=== PATIENT | male | born 2000 | race Two or more races ===

== ENCOUNTER 2025-06-16 01:02 | Inpatient (IN) | payer MEDICAID, SELFPAY ==
[2025-06-16] VITALS (7 sets, daily range): BP systolic 137–152; BP diastolic 75–98; PULSE 44–84; RESP 18–19; TEMP 36.2–36.6; O2SAT 95–99; BMI 32.8
--- NOTE | 2025-06-16 01:33 | XR_ITS ---
Examination: CT abdomen and pelvis without contrast. Coronal 3-D reconstructions. Sagittal 2-D reconstructions. Date and time of exam:June 16, 2025, 0308 hours Comparison September 26, 2022 INDICATIONS: Upper abdominal pain beginning 2 days ago, history acute pancreatitis CTDI: vol (mGy): 10.9 DLP: (mGycm): 703 Technique: Axial images of the abdomen have been obtained, 3 mm slice thickness Intravenous contrast material has not been administered. Low dose protocols were performed. One or more of the following dose reduction techniques were used; automated exposure control, adjustment of the mA and/or KV according to patient size, use of iterative reconstruction technique. Findings: No focal liver or splenic lesions Absent gallbladder Significant edema surrounding the pancreas Aorta normal size No hydronephrosis Normal appendix No bowel obstruction Urinary bladder intact IMPRESSION: Acute pancreatitis
[2025-06-16 02:04] LABS: Collection Type, Urine Clean Catch
[2025-06-16 02:05] LABS: Basophils # (Auto) 0.1 Thou/mm3 (0.0-0.2); Basophils % (Auto) 0 % (0-2.5); Eosinophils # (Auto) 0.3 Thou/mm3 (0.0-0.5); Eosinophils % (Auto) 1 % (0-10); Hematocrit 43.0 % (41.0-53.0); Hemoglobin 15.1 g/dL (13.5-16.0); Immature Granulocytes Auto 0.09 Thou/mm3 (0.00-0.00); Lymphocytes # (Auto) 2.4 Thou/mm3 (1.0-4.8); Lymphocytes % (Auto) 11 % (10-50); Mean Corpuscular HGB Conc 35.1 g/dl (31.0-37.0); Mean Corpuscular Hemoglobin 27.0 pg (25.0-35.0); Mean Corpuscular Volume 77 fL (80-100); Monocytes # (Auto) 1.5 Thou/mm3 (0.0-0.8); Monocytes % (Auto) 7 % (0-12); Neutrophils # (Auto) 16.7 Thou/mm3 (1.8-7.7); Neutrophils % (Auto) 80 % (37-80); Nucleated Red Blood Cell # 0.00 Thou/mm3 (0.00-0.00); Nucleated Red Blood Cell % 0 /100 WBC (0); Platelet Count 304 Thou/mm3 (140-440); RDW Standard Deviation 36.6 fL (35.1-43.9); Red Blood Count 5.59 Miln/mm3 (4.50-5.90); White Blood Count 21.0 Thou/mm3 (3.8-10.6)
[2025-06-16 02:09] LABS: Bilirubin,Urine Negative (Negative); Blood,Urine Trace (Negative); Clarity,Urine Clear (Clear/Hazy); Color,Urine Yellow (Lt Yel-Yel); Glucose, Urine Negative (Negative); Ketones,Urine Negative (Negative); Leukocyte Esterase,Urine Negative (Negative); Nitrite,Urine Negative (Negative); PH,Urine 6.0 (5.0-7.0); Protein,Urine Trace (Neg - Trace); RBC,Urine 6 /hpf (0-3); Specific Gravity,Urine 1.029 (1.001-1.035); Squamous Epithelial Cell,Urine < 1 /hpf (0-5); Urobilinogen,Urine Negative mg/dL (0.0-1.0); WBC,Urine 2 /hpf (0-5)
[2025-06-16] MEDS: cefTRIAXone 2 GM in SODIUM CHLORIDE 0.9% (Popper) 100 ML IV (02:31)
[2025-06-16] MEDS: MORPHINE SULF INJ 10 MG/ML VIAL 4 MG IVP (02:32)
[2025-06-16] MEDS: SODIUM CHLORIDE 0.9% 1000 ML 1,000 ML 999 ML IV ×2 (02:32)
[2025-06-16 02:44] LABS: Alanine Aminotransferase 44 U/L (10-49); Albumin, Serum 4.5 gm/dL (3.5-5.0); Albumin/Globulin Ratio 1.7 (1.2-2.2); Alkaline Phosphatase 95 U/L (46-116); Anion Gap 12 (7-16); Aspartate Amino Transferase 36 U/L (0-34); BUN/Creatinine Ratio 9 Ratio (12-20); Bilirubin,Total 0.5 mg/dL (0.3-1.2); Blood Urea Nitrogen 8 mg/dL (9-23); Calcium 9.5 mg/dL (8.3-10.6); Calcium (Corrected) 9.5 mg/dL (8.5-10.1); Carbon Dioxide 24.5 mMol/L (20.0-31.0); Chloride 104 mMol/L (98-107); Creatinine (Component) 0.9 mg/dL (0.6-1.3); Estimated Creatinine Clearance 155.8 mL/min (>60); Globulin 2.7 gm/dL (2.3-3.5); Glucose 121 mg/dL (74-106); Lipase 895 U/L (12-53); Osmolality,Calculated 278 (275-295); Potassium 3.7 mMol/L (3.4-5.1); Sodium 140 mMol/L (136-145); Total Protein 7.2 gm/dL (5.7-8.2); eGFR > 60 See Note
[2025-06-16 02:45] LABS: Lactate (Lactic Acid) 1.3 mMol/L (0.4-2.0)
--- NOTE | 2025-06-16 04:22 | PRELIM_ITS ---
CT scan of the abdomen and pelvis without intravenous contrast (axial sections with sagittal and coronal reformats). June 16, 2025 at 0308 hours Clinical History: Abdominal pain. Comparison: None available at the time of this report. Findings: The lung bases are clear. The liver, spleen, kidneys and adrenals are unremarkable on this noncontrast study. Status postcholecystectomy. No biliary duct dilation. Peripancreatic fat stranding. No evidence of bowel obstruction. The appendix is within normal limits. There is no mesenteric or retroperitoneal adenopathy. The urinary bladder is unremarkable. There is no free fluid or free air. The osseous structures are unremarkable. Impression: Acute pancreatitis. Report Electronically Signed By: Froilan Gross 06/16/2025 4:21:46 AM [EST]
--- NOTE | 2025-06-16 04:41 | EDNOTE_ITS ---
ED Abdominal Pain RME/HPI General Chief Complaint: Abdominal Pain Stated complaint: UPPER ABD PAIN X 2 DAYS Time seen by provider: 06/16/25 01:11 Arrival date/time: 06/16/25 01:02 This is a case of 24-year-old male with history of cholecystectomy and acute pancreatitis came in in the emergency room due to generalized abdominal pain for 2 days associated with nausea vomiting denies any constipation diarrhea denies any blood in stool last alcohol intake is last month April 2025 Limitations: no limitations Related Data Previous Rx's ?Medication ?Instructions ?Recorded aluminum-mag hydroxide-simethicone 10 ml PO Q6H PRN in digestion #355 09/26/22 200 mg-200 mg-20 mg/5 mL oral susp mL (Maalox Advanced) famotidine 20 mg tablet 20 mg PO QDAY #30 tabs 09/26 benzonatate 100 mg capsule 100 mg PO TID #14 caps 08/27 07/19 ibuprofen 800 mg tablet 800 mg PO TID PRN pain #30 t abs 09/13/23 Allergies Allergy/AdvReac Type Severity Reaction Status Date / Time No Known Allergies Allergy Verified 09/26/22 19:17 Review of Systems Review of Systems Systems Reviewed: All systems reviewed, normal except as documented Constitutional Constitutional: Reports system reviewed and no additional complaints, except as documented, Denies chills and Denies fever(s) Cardiovascular Cardiovascular: Reports system reviewed and no additional complaints, except as documented, Reports as per HPI, Denies chest pain and Denies dyspnea Respiratory Respiratory: Reports system reviewed and no additional complaints, except as documented, Reports as per HPI, Denies cough and Denies dyspnea Gastrointestinal Gastrointestinal: Reports system reviewed and no additional complaints, except as documented, Reports as per HPI, Reports abdominal pain, Denies diarrhea, Denies dyspepsia, Reports nausea and Reports vomiting Genitourinary Genitourinary: Reports system reviewed and no additional complaints, except as documented, Reports as per HPI, Denies dysuria and Denies hematuria Neurologic Neurologic: Reports system reviewed and no additional complaints, except as documented and Reports as per HPI Past Medical History Past Medical History NEUROLOGIC: Negative Neurological Disorders CARDIAC: Negative Cardiac Disorders or Congestive Heart Failure RESPIRATORY: Negative Chronic Obstructive Pulmonary Disease (COPD) or Asthma GASTROINTESTINAL: Positive Pancreatitis and Gall Bladder Disease; Negative Gastrointestinal Disorders GENITOURINARY: Negative Genitourinary Disorders or Renal Disease MUSCULOSKELETAL: Negative Musculoskeletal Disorders ENDOCRINE: Negative Endocrine Disorders, Diabetes Mellitus Type 1 or Diabetes Mellitus Type 2 HEMATOLOGIC: Negative Blood Disorders or Sickle Cell Disease OTHER HISTORY: Negative Autoimmune Disease or Anesthesia Reactions Family History FAMILY HISTORY: Negative Family Cardiac Disorders Surgical History SURGICAL: Positive Abdominal Surgery; Negative Cardiac Surgery Social History SMOKING STATUS: Heavy (> 1 pack/day) SECOND HAND EXPOSURE: No SUBSTANCE USE: does not use ED Exam General Limitations: Present no limitations General appearance: Present alert, in no apparent distress and other (Patient is awake alert oriented not in distress nontoxic looking well-hydrated well- nourished) Head Head exam: Present atraumatic Eye Eye exam: Present normal appearance, PERRL and EOMI ENT ENT exam: Present normal exam, normal oropharynx and mucous membranes moist Neck Neck exam: Present normal inspection, full ROM and trachea midline; Absent tenderness, meningismus, lymphadenopathy or thyromegaly Chest Chest inspection: Present normal inspection and symmetric chest wall rise; Absent tenderness Respiratory Respiratory exam: Present normal lung sounds bilaterally; Absent respiratory distress, wheezes, stridor, accessory muscle use or prolonged expiratory phase Cardiovascular Cardiovascular exam: Present regular rate, normal rhythm and normal heart sounds; Absent bradycardia, tachycardia, irregular rhythm, systolic murmur or diastolic murmur Abdominal Exam Abdominal exam: Present soft, tenderness (Mild tenderness on both upper abdomen and epigastric area) and normal bowel sounds; Absent distention, guarding, rebound, rigidity, diminished bowel sounds, hyperactive bowel sounds, hypoactive bowel sounds, organomegaly, trauma, psoas sign, obturator sign, Barton's sign, Rovsing's sign, tenderness at McBurney's Point or hernia Abdominal tenderness: Present RUQ, LUQ, epigastrium and mild Extremities Exam Extremities exam: Present normal inspection and full ROM Back Exam Back exam: Present normal inspection and full ROM Neurological Exam Neurological exam: Present alert, oriented X3, CN II-XII intact, normal gait and reflexes normal; Absent motor sensory deficit Psychiatric Psychiatric exam: Present normal affect and normal mood Skin Skin exam: Present warm, dry, intact and normal color Course Quality Measures none Orders Category Date Time Status COVID-19 Screening Questionnaire NOW Care 06/16/25 02:51 Active Decision to Admit X1 Care 06/16/25 02:51 Completed Insert IV NOW Care 06/16/25 02:[address] abdomen pelvis wo con Stat Exams 06/16/25 01:33 Taken Amylase Stat Lab 06/16/25 02:32 Received Blood Culture (Lab) Stat Lab 06/16/25 02:39 Received CBC Stat Lab 06/16/25 01:51 Completed Comprehensive Metabolic Panel Stat Lab 06/16/25 01:51 Completed Lactic Acid [Lactate (Lactic Acid)] Stat Lab 06/16/25 02:32 Completed Lipase Stat Lab 06/16/25 01:51 Completed Urinalysis Stat Lab 06/16/25 01:56 Completed Famotidine Inj [Pepcid Inj] Med 06/16/25 02:16 Discontinued 20 mg IVP X1 ONE Morphine Inj Med 06/16/25 02:16 Active 4 mg IVP Q30M PRN Sodium Chloride 0.9% 1000 ml [Ns] 1,000 ml Med 06/16/25 02:16 Discontinued IV 999 mls/hr Sodium Chloride 0.9% 1000 ml [Ns] 1,000 ml Med 06/16/25 02:18 Discontinued IV 999 mls/hr cefTRIAXone [Rocephin] 2 gm Med 06/16/25 02:19 Discontinued SODIUM CHLORIDE 0.9% (Popper) [Ns 0.9% (P)] 100 ml IV X1 Vital Signs Vital signs: Vital Signs Temperature 97.8 F 06/16/25 01:30 Pulse Rate 61 06/16/25 01:30 Respiratory Rate 18 06/16/25 01:30 Blood Pressure 152/98 H 06/16/25 01:30 Pulse Oximetry (%) 97 06/16/25 01:30 Oxygen Delivery Method Room Air 06/16/25 01:30 Patient is afebrile not tachycardic not tachypneic BP stable not hypoxic oxygen saturation is 97% in room air Abdominal Pain MDM MDM Narrative MDM Narrative:: This is a case of 24-year-old male with history of cholecystectomy and acute pancreatitis came in in the emergency room due to generalized abdominal pain for 2 days associated with nausea vomiting denies any constipation diarrhea denies any blood in stool last alcohol intake is last month April 2025 physical examination patient is awake alert oriented not in distress nontoxic looking well-hydrated well-nourished abdominal exam noted mild to moderate tenderness on both upper abdominal and epigastric area no guarding no rebound no rigidity negative psoas negative straight or negative Rovsing's negative Rush's negative Barton sign negative CVA tenderness the rest of the physical examination is normal vital signs stable BP stable nontachycardic nontachypneic afebrile and nonhypoxic patient blood test showed leukocytosis at 21,000 thus lactic acid and blood culture was ordered patient was also given a 2000 mL bolus of normal saline and 2 g of ceftriaxone no anemia platelet is normal kidney and liver function is normal bilirubin is normal no electrolyte imbalance urinalysis is normal patient pending amylase lipase is 845 CT scan showed acute pancreatitis lactic acid is normal decision to admit the patient for further evaluation and treatment was made I spoke to Dr. Lenz hospitalist on-call discussed patient condition history and physical examination and agreed that the patient need to be admitted and accept patient care for admission discussed with the patient the treatment plan admission and agreed Patient data External records reviewed:: [facility] previous records Clinical information provided by:: patient Social determinants that could affect healthcare access:: none Patient has the following chronic illnesses:: None How is presenting disease/condition affected by chronic disease/condition?: no chronic disease Evaluation data The following diagnostics were reviewed and interpreted by me:: lab results and radiology exam(s) Lab and/or radiology exams considered but not ordered:: Reviewed Interpretation Summary: Reviewed Medications / Prescriptions Medications or Prescriptions considered but not ordered:: Given Medication administrations:: Medication Administration History Morphine Sulfate (Morphine Sulf Inj 10 Mg/Ml Vial) 4 mg IVP Q30M PRN PRN Reason: PAIN Last Admin: 06/16/25 02:32 Dose: 4 mg Documented By: BD Discontinued Medications Famotidine (Famotidine Inj 10 Mg/Ml Vial 2 Ml) 20 mg IVP X1 ONE Stop: 06/16/25 02:17 Last Admin: 06/16/25 02:22 Dose: Not Given Documented By: BD Non-Admin Reason: Cancelled by Provider Sodium Chloride (Ns) 1,000 mls @ 999 mls/hr IV .Q1H1M ONE Stop: 06/16/25 03:16 Last Infusion: 06/16/25 03:26 Dose: Infused Documented By: Admin: 06/16/25 02:32 Dose: 999 mls/hr Documented By: BD Sodium Chloride (Ns) 1,000 mls @ 999 mls/hr IV .Q1H1M ONE Stop: 06/16/25 03:18 Last Infusion: 06/16/25 03:26 Dose: Infused Documented By: Admin: 06/16/25 02:32 Dose: 999 mls/hr Documented By: BD Ceftriaxone Sodium 2 gm/ (Sodium Chloride) 100 mls @ 200 mls/hr IV X1 ONE Stop: 06/16/25 02:48 Last Infusion: 06/16/25 03:06 Dose: Infused Documented By: Admin: 06/16/25 02:31 Dose: 200 mls/hr Documented By: BD Given Consultations Consultation(s) initiated? (list below): Yes Consultation #1 (Physician, Specialty, Details): Dr Lenz discussed patient condition history and physical examination accept patient care and admission Diagnosis Differential diagnosis abdominal pain: abdominal pain, acute appendicitis, calculus of kidney, constipation, diverticulitis, gastroenteritis, pancreatitis and small bowel obstruction Most likely diagnosis given after review of the tests above:: Acute pancreatitis Admission Indicated Admission indicated?: indicated Explain why admission is indicated or not indicated:: Acute pancreatitis Admission Request Was there a request for admission?: Yes Admission Attestation Admission request attestation: Discussed case with [] from Hospitalist service regarding admission. Discussed patients ED course, exam findings, labs, and radiology results. The Hospitalist [agrees,declines] to accept the patient for admission. Disposition Plan Disposition Plan: Admit Discharge Plan Plan Patient Disposition: Admit Acute Care w/in Hospital Patient condition on transfer: Stable Prescriptions/Referrals Prescriptions/Med Rec: No Action famotidine 20 mg tablet 20 mg PO QDAY Qty: 30 0RF alum-mag hydroxide-simeth [Maalox Advanced] 200-200-20 mg/5 mL suspension 10 ml PO Q6H PRN (Reason: indigestion) Qty: 355 0RF ibuprofen 800 mg tablet 800 mg PO TID PRN (Reason: pain) Qty: 30 0RF benzonatate 100 mg capsule 100 mg PO TID Qty: 14 0RF Referrals: No Primary/Family,Physician [Primary Care Provider] - In 1 week Problem List Clinical Impression: Acute pancreatitis Patient/Caregiver Discharge Instructions Education Materials: ED Pancreatitis Print Language: Fijian Stand Alone Forms: Belen Award Info., Patient Portal Info Letter PA/ENVIRONMENTAL TECH Supervising Physician PA/ENVIRONMENTAL TECH Supervising Physician: dr rojas
[2025-06-16] MEDS: RINGERS LACTATED 1000 ML 1,000 ML 200 ML IV ×4 (05:13→21:53)
[2025-06-16] MEDS: KETOROLAC INJ 30 MG/ML VIAL IVP (05:16)
[2025-06-16] MEDS: ONDANSETRON INJ 2 MG/ML INJ 2 ML 4 MG IVP (05:33)
[2025-06-16 05:39] LABS: Basophils # (Auto) 0.1 Thou/mm3 (0.0-0.2); Basophils % (Auto) 0 % (0-2.5); Eosinophils # (Auto) 0.5 Thou/mm3 (0.0-0.5); Eosinophils % (Auto) 3 % (0-10); Hematocrit 39.0 % (41.0-53.0); Hemoglobin 13.9 g/dL (13.5-16.0); Immature Granulocytes Auto 0.10 Thou/mm3 (0.00-0.00); Lymphocytes # (Auto) 2.6 Thou/mm3 (1.0-4.8); Lymphocytes % (Auto) 14 % (10-50); Mean Corpuscular HGB Conc 35.6 g/dl (31.0-37.0); Mean Corpuscular Hemoglobin 27.6 pg (25.0-35.0); Mean Corpuscular Volume 77 fL (80-100); Monocytes # (Auto) 1.2 Thou/mm3 (0.0-0.8); Monocytes % (Auto) 7 % (0-12); Neutrophils # (Auto) 14.0 Thou/mm3 (1.8-7.7); Neutrophils % (Auto) 76 % (37-80); Nucleated Red Blood Cell # 0.00 Thou/mm3 (0.00-0.00); Nucleated Red Blood Cell % 0 /100 WBC (0); Platelet Count 239 Thou/mm3 (140-440); RDW Standard Deviation 37.3 fL (35.1-43.9); Red Blood Count 5.04 Miln/mm3 (4.50-5.90); White Blood Count 18.4 Thou/mm3 (3.8-10.6)
[2025-06-16 05:59] LABS: Alanine Aminotransferase 42 U/L (10-49); Albumin, Serum 4.0 gm/dL (3.5-5.0); Albumin/Globulin Ratio 1.7 (1.2-2.2); Alkaline Phosphatase 86 U/L (46-116); Anion Gap 9 (7-16); Aspartate Amino Transferase 39 U/L (0-34); BUN/Creatinine Ratio 9 Ratio (12-20); Bilirubin,Total 0.4 mg/dL (0.3-1.2); Blood Urea Nitrogen 7 mg/dL (9-23); Calcium 8.5 mg/dL (8.3-10.6); Calcium (Corrected) 8.5 mg/dL (8.5-10.1); Carbon Dioxide 23.6 mMol/L (20.0-31.0); Chloride 107 mMol/L (98-107); Creatinine (Component) 0.8 mg/dL (0.6-1.3); Estimated Creatinine Clearance 175.3 mL/min (>60); Globulin 2.3 gm/dL (2.3-3.5); Glucose 109 mg/dL (74-106); Osmolality,Calculated 278 (275-295); Potassium 3.4 mMol/L (3.4-5.1); Sodium 140 mMol/L (136-145); Total Protein 6.3 gm/dL (5.7-8.2); eGFR > 60 See Note
--- NOTE | 2025-06-16 06:15 | ESHP_ITS ---
Documentation for date of: 06/16/25 [facility] History of Present Illness History of present illness: Nahid Garcia is a 24-year-old male with a PMH of alcohol use disorder who presents today with abdominal pain with associated nausea. Patient states that the pain started yesterday morning and that the pain was localized across his upper abdominal area. The pain is described as constant and worsening after he eats or drinks, with its current severity being a 9/10. Patient reports that his last drink was a year ago and that his last bowel movement was yesterday and productive of normal, brown stool. He also endorses urinary frequency but no dysuria or hematuria. In the ED, vitals showed: BP 152/98 HR 61 RR 18 Temp 97.8 SpO2 97% on room air ED Course: CBC showed high WBC 18.4 with neutrophilic predominance but was otherwise unremarkable. CMP showed slightly elevated AST 39, normal ALT 42, and a significantly elevated lipase 895. UA showed some RBC present in urine (6 per high-powered field). Imaging: CTAP showed findings suggestive of acute pancreatitis. In the ED, patient was started on IV ceftriaxone 2 g x 1, and given 1 L normal saline bolus x2. Patient was admitted for the work-up and management of acute pancreatitis. Review of Systems Review of Systems Narrative Review of Systems: General: Denies fevers or chills HEENT: Denies congestion or sore throat Heart: Denies chest pain or palpitations Lungs: Denies shortness of breath or cough Abdomen: Endorses abdominal pain in RUQ and LUQ. Endorses nausea. Denies vomiting, constipation, diarrhea, or blood in stool Genitourinary: Endorses urinary frequency. Denies urgency, dysuria, or hematuria Neurology: Denies any changes in vision, weakness or difficulty speaking Review of systems otherwise negative except what is mentioned above. Past Medical History Past Medical History Comments PMH COMMENT: PMH: none PSH: cholecystectomy (2019) Medications: none Allergies: none FH: T2DM in mom SH: lives in a house in [place] with uncle, drank an average of 12 packs per day from age [age] (quit 1 year ago), smoked an average of 1 pack per day from age [age] (still smokes), denies any recreational drug use Exam Vital Signs Temp Pulse Resp BP Pulse Ox O2 Del Method 97.7 F 51 L 18 148/92 H 99 Room Air 06/16/25 04:31 06/16/25 04:06/16/25 04:31 06/16/25 04:31 06/16/25 04:06/16/25 04:31 Narrative Exam Physical Exam: General: Seems to be pained and in distress. Alert. Skin: Warm, dry, intact, no obvious rash. Head: Normocephalic, atraumatic. Eye: Normal conjunctiva, PERRL. Throat: Oral mucosa moist. No obvious lesions in oropharynx. Cardiovascular: Regular rate and rhythm, no murmur, +S1/S2. Respiratory: Shallow breaths. Lungs are clear to auscultation, no crackles, no wheezing. Gastrointestinal: Tenderness to palpation of RUQ and LUQ abdomen. Guarding. S oft, non-distended. No rebound tenderness. Extremities: No edema, no cyanosis, no clubbing. 2+ radial pulse bilaterally, 2+ posterior tibial pulse bilaterally. Neuro: No focal deficits observed. Conversant, moving all extremities. No overt cerebellar signs/incoordination. Psychiatric: Cooperative, appropriate affect. Results: Labs 06/16/25 05:18 06/16/25 05:18 Labs: Short CBC 06/16/25 06/16/25 Range/Units 01:51 05:18 WBC 21.0 H 18.4 H (3.8-10.6) Thou/mm3 Hgb 15.1 13.9 (13.5-16.0) g/dL Hct 43.0 39.0 L (41.0-53.0) % Plt Count 304 239 D (140-440) Thou/mm3 [facility] 06/16/25 06/16/25 01:51 05:18 Sodium 140 140 Potassium 3.7 3.4 Chloride 104 107 Carbon Dioxide 24.5 23.6 BUN 8 L 7 L Creatinine 0.9 0.8 Glucose 121 H 109 H Calcium 9.5 8.5 Liver Function 06/16/25 06/16/25 Range/Units 01:51 05:18 Total Bilirubin 0.5 0.4 (0.3-1.2) mg/dL AST 36 H 39 H (0-34) U/L ALT 44 42 (10-49) U/L Alkaline Phosphatase 95 86 (46-116) U/L Albumin 4.5 4.0 D (3.5-5.0) gm/dL Urine 06/16/25 Range/Units 01:56 Urine Color Yellow (Lt Yel-Yel) Urine Clarity Clear (Clear/Hazy) Urine pH 6.0 (5.0-7.0) Ur Specific [place] 1.029 (1.001-1.035) Urine Protein Trace (Neg - Trace) Urine Glucose (UA) Negative (Negative) Quality Measures Quality Measures none Medications Home Medications and Allergies Home Medications ?Medication ?Instructions ?Recorded ?Confirmed ?Type No Known Home Medications 06/16/2505/28 History Allergies Allergy/AdvReac Type Severity Reaction Status Date / Time No Known Allergies Allergy Verified 09/26/22 19:17 Visit Medications Acetaminophen (Acetaminophen 325 Mg Tablet) 650 mg PO Q6H PRN PRN Reason: PAIN SCALE 1-3 (mild Stop: 07/16/25 04:58 Lactated Ringer's (Lactated Ringers) 1,000 mls @ 200 mls/hr IV .Q5H ANNETTE Stop: 07/16/25 04:59 Last Admin: 06/16/25 05:13 Dose: 200 mls/hr Ketorolac Tromethamine (Ketorolac Inj 30 Mg/Ml Vial) 30 mg IVP Q6HR PRN PRN Reason: Pain 4-6 Stop: 06/21/25 04:58 Last Admin: 06/16/25 05:16 Dose: 30 mg Morphine Sulfate (Morphine Sulf Inj 10 Mg/Ml Vial) 1 mg IVP Q6H PRN PRN Reason: PAIN SCALE 7-10 (Severe Stop: 06/21/25 04:58 Ondansetron HCl (Ondansetron Inj 2 Mg/Ml Inj 2 Ml) 4 mg IVP Q6H PRN; Protocol PRN Reason: NAUSEA OR VOMITING Stop: 07/16/25 04:58 Last Admin: 06/16/25 05:33 Dose: 4 mg Discontinued Medications Famotidine (Famotidine Inj 10 Mg/Ml Vial 2 Ml) 20 mg IVP X1 ONE Stop: 06/16/25 02:17 Last Admin: 06/16/25 02:22 Dose: Not Given Sodium Chloride (Ns) 1,000 mls @ 999 mls/hr IV .Q1H1M ONE Stop: 06/16/25 03:16 Last Infusion: 06/16/25 03:26 Dose: Infused Sodium Chloride (Ns) 1,000 mls @ 999 mls/hr IV .Q1H1M ONE Stop: 06/16/25 03:18 Last Infusion: 06/16/25 03:26 Dose: Infused Ceftriaxone Sodium 2 gm/ (Sodium Chloride) 100 mls @ 200 mls/hr IV X1 ONE Stop: 06/16/25 02:48 Last Infusion: 06/16/25 03:06 Dose: Infused Morphine Sulfate (Morphine Sulf Inj 10 Mg/Ml Vial) 4 mg IVP Q30M PRN PRN Reason: PAIN Last Admin: 06/16/25 02:32 Dose: 4 mg Assessment & Plan Assessment #Acute pancreatitis #likely 2/2 gallstones (40-70% of cases)/alcohol use (25-35% of cases) #s/p cholecystectomy and Noncontrast CTAP showed significant edema surrounding the pancreas suggesting acute pancreatitis as well as the absence of a gallbladder. Cause of current presentation is currently unknown as most cases of acute pancreatitis are 2/2 gallstones (patient is s/p 2019 cholecystectomy) or alcohol use (patient has not drank since last year) which do not seem to be the case for this patient. Plan: -Moderate fluid infusion with 1 L LR maintenance fluid at 200 mL/hr -Pain regimen: 1. IV Ketorolac 30 mg q6HR prn (Pain 4-6) 2. IV morphine 1 mg q 6HR prn (Pain 7-10) -Placed on NPO (advance diet as tolerated) -IV Zofran 40 mg q4HR prn for nausea -Consider ordering a lipid panel to determine if the acute pancreatitis is 2/2 hypertriglyceridemia Hospital Management: Disposition: being symptomatically managed for acute pancreatitis Diet: NPO (advance diet as tolerated) GI Prophylaxis: none Bowel Prophylaxis: Senna DVT Prophylaxis: SCDs CODE STATUS: Full Code I have examined the patient and conferred with my attending, Dr. Moreland, and my senior resident, Dr. Henry, regarding them. Santosh Lenz DO PGY-1 Internal Medicine Attending Provider Attestation/Addendum 24-year-old male patient with alcohol use was admitted for abdominal pain secondary to pancreatitis. Patient will receive IV fluids pain control. He will be kept n.p.o. I discussed with and supervised the resident physician who took care of this patient. I agree with the assessment and plan as above.
--- NOTE | 2025-06-16 06:22 | PC.NURSE ---
REPORT GIVEN TO RITA TSE AT [facility].
[2025-06-16 08:25] LABS: Cardiac Risk Estimate 3.1 RATIO (4.0-6.7); Cholesterol 106 mg/dL (132-200); HDL Cholesterol 34 mg/dL (40-60); LDL Cholesterol,Calculated 40 mg/dL (0-130); Triglycerides 159 mg/dL (30-150)
--- NOTE | 2025-06-16 09:51 | PC.SS ---
Patient is a 24 year old male that was brought in in for pancreatitis. YOUTH SUPPORT WORKER made face to face contact with patient. YOUTH SUPPORT WORKER introduced self, role, and reason for visit. Pt. was alert and oriented to self, location, and situation. Pt. confirmed demographic information and reports that his emergency contact is his uncle, Nahid Garcia, ph:[phone]. Pt. does not require DME and is able to ambulate independently. His pharmacy of choice is [facility] on [address]. Pt. reported that he does not have a PCP. YOUTH SUPPORT WORKER provided pt. with community resource list for local clinics. Once medically cleared pt. plans to return home and his uncle Nahid will provide transportation. PCP: none Emergency contact: [phone] D/c: home
[2025-06-16] MEDS: MORPHINE SULF INJ 10 MG/ML VIAL IVP ×2 (10:37→18:02)
[2025-06-16 10:39] LABS: Glucose Estimated Average 103 mg/dL (80-131); Hemoglobin A1C 5.2 % Hgb (4.8-6.0)
[2025-06-16 12:30] LABS: Alcohol, Urine Negative (Negative)
[2025-06-16 12:37] LABS: Amphetamine/Methamp Scrn,U Positive (Negative); Barbiturate Screen,Urine Negative (Negative); Benzodiazepines Screen,Urine Negative (Negative); Benzoylecgonine Screen, Ur Positive (Negative); Fentanyl Screen,Urine Negative (Negative); Opiate Screen,Urine Positive (Negative); THC Screen,Urine Negative (Negative)
--- NOTE | 2025-06-16 13:28 | ESPR_ITS ---
<Statement entered by Julia Gant MD - 06/24/25 08:01> I reviewed above note and agree with findings and plans. I have also personally examined the patient with medicine team and went over assessment and plan with medical team including manager of internal audit and resident physician. Documentation for date of: 06/16/25 Overnight admission for acute pancreatitis, continue IV fluids, advance diet as tolerated currently clear liquids advance to full liquids for breakfast on 06/17/2025. Patient has a past medical history of alcohol use disorder, denies alcohol use since previous admission with a negative urine alcohol level versus cocaine and meth induced which can be rare but can cause vasoconstriction versus viral such as HIV but less likely. Continue to monitor WBC count/for pyrexia likely reactive but given edematous pancreas infectious cause cannot be ruled out. Tobacco use disorder with a 8-pack-year history, nicotine patch on board. May given Ativan push of 1 mg if agitation present. NO agiation or withdrawl symptoms noted. Plan to discharge within the next 24 hours. Subjective Subjective Interval history: Patient seen and examined at bedside this AM. Of note, patient's last two admissions in January and August 2022 were also for pancreatitis, likely alcohol related. Patient reports he has not been drinking for the past year. He has been smoking 1 PPD since he was 17 years old. Denied recreational or illegal drug use. Labs and vitals were reviewed. S/p IVP CFX in ED, WBC elevated but downtrending, likely reactive. Utox 06/16 was positive for meth and cocaine, also positive for opiates but was given PRN ketorolac and morphine on admission. Negative for alcohol. Currently rates his pain as 4/10, will advance diet as tolerated. Anticipate discharge tomorrow. Review of systems otherwise negative except what is mentioned above. Exam Vital Signs Temp Pulse Resp BP Pulse Ox O2 Del Method 97.2 F 52 L 18 141/85 H 97 Room Air 06/16/25 11:57 06/16/25 11:57 06/16/25 11:57 06/16/25 11:57 06/16/25 11:57 06/16/25 11:57 Objective Objective Narrative Objective Narrative: Physical Exam General: Awake and in no acute distress. Conversational and non-toxic appearing. HEENT: Normocephalic, atraumatic, mucous membranes moist. Heart: Regular rate and rhythm, normal S1 and S2, no murmurs. Lungs: Clear to auscultation with no wheezing or crackles. Abdomen: Soft, nondistended, positive bowel sounds. Tenderness in epigastric region and LUQ. No guarding or rebound tenderness. Neurologic: Alert and oriented x3, no gross neurological deficit, and patient able to move all 4 extremities. Extremities: No edema. Skin: No rash or ecchymoses. Labs 06/16/25 05:18 06/16/25 05:18 Labs: Laboratory Results - last 24 hr 06/16/25 06/16/25 06/16/25 01:51 01:56 02:32 WBC 21.0 H RBC 5.59 Hgb 15.1 Hct 43.0 MCV 77 L MCH 27.0 MCHC 35.1 RDW Std Deviation 36.6 Plt Count 304 Neut % (Auto) 80 Lymph % (Auto) 11 [place] % (Auto) 7 Eos % (Auto) 1 Baso % (Auto) 0 Neut # (Auto) 16.7 H Lymph # (Auto) 2.4 [place] # (Auto) 1.5 H Eos # (Auto) 0.3 Baso # (Auto) 0.1 Immature Gran # (Auto) 0.09 H Absolute Nucleated RBC 0.00 Immature Gran % 0 Nucleated RBC % 0 Sodium 140 Potassium 3.7 Chloride 104 Carbon Dioxide 24.5 Anion Gap 12 BUN 8 L Creatinine 0.9 Estim Creat Clear Calc 155.8 eGFR > 60 BUN/Creatinine Ratio 9 L Glucose [address] Glu mg/dL Hemoglobin A1c Calculated Osmolality 278 Lactic Acid 1.3 Calcium 9.5 Corrected Calcium 9.5 Total Bilirubin 0.5 AST 36 H ALT 44 Alkaline Phosphatase 95 Total Protein 7.2 Albumin 4.5 Globulin 2.7 Albumin/Globulin Ratio 1.7 Triglycerides Cholesterol LDL Cholesterol, Calc HDL Cholesterol Cholesterol/HDL Ratio Lipase 895 H Ur Collection Type Clean Catch Urine Color Yellow Urine Clarity Clear Urine pH 6.0 Ur Specific [place] 1.029 Urine Protein Trace Urine Glucose (UA) Negative Urine Ketones Negative Urine Blood Trace Urine Nitrite Negative Urine Bilirubin Negative Urine Urobilinogen (Auto) Negative Ur Leukocyte Esterase Negative Urine RBC 6 H Urine WBC 2 Ur Squamous Epith Cells < 1 Urine Bacteria None Urine Opiates Screen Urine Fentanyl Screen Ur Barbiturates Screen U Amphetamin/Meth Scrn U Benzodiazepines Scrn U Cocaine Metab Screen U Marijuana (THC) Screen Urine Alcohol 06/16/25 06/16/25 06/16/25 05:18 08:40 11:34 WBC 18.4 H RBC 5.04 Hgb 13.9 Hct 39.0 L MCV 77 L MCH 27.6 MCHC 35.6 RDW Std Deviation 37.3 Plt Count 239 D Neut % (Auto) 76 Lymph % (Auto) 14 [place] % (Auto) 7 Eos % (Auto) 3 Baso % (Auto) 0 Neut # (Auto) 14.0 H Lymph # (Auto) 2.6 [place] # (Auto) 1.2 H Eos # (Auto) 0.5 Baso # (Auto) 0.1 Immature Gran # (Auto) 0.10 H Absolute Nucleated RBC 0.00 Immature Gran % 1 H Nucleated RBC % 0 Sodium 140 Potassium 3.4 Chloride 107 Carbon Dioxide 23.6 Anion Gap 9 BUN 7 L Creatinine 0.8 Estim Creat Clear Calc 175.3 eGFR > 60 BUN/Creatinine Ratio 9 L Glucose [address] Glu mg/dL 103 Hemoglobin A1c 5.2 Calculated Osmolality 278 Lactic Acid Calcium 8.5 Corrected Calcium 8.5 Total Bilirubin 0.4 AST 39 H ALT 42 Alkaline Phosphatase 86 Total Protein 6.3 Albumin 4.0 D Globulin 2.3 Albumin/Globulin Ratio 1.7 Triglycerides 159 H Cholesterol 106 L LDL Cholesterol, Calc 40 HDL Cholesterol 34 L Cholesterol/HDL Ratio 3.1 L Lipase Ur Collection Type Urine Color Urine Clarity Urine pH Ur Specific [place] Urine Protein Urine Glucose (UA) Urine Ketones Urine Blood Urine Nitrite Urine Bilirubin Urine Urobilinogen (Auto) Ur Leukocyte Esterase Urine RBC Urine WBC Ur Squamous Epith Cells Urine Bacteria Urine Opiates Screen Positive A Urine Fentanyl Screen Negative Ur Barbiturates Screen Negative U Amphetamin/Meth Scrn Positive A U Benzodiazepines Scrn Negative U Cocaine Metab Screen Positive A U Marijuana (THC) Screen Negative Urine Alcohol Negative Quality Measures Quality Measures none Assessment & Plan Assessment Current Active Medications: Generic Name Dose Route Start Last Admin Trade Name Freq PRN Reason Stop Dose Admin Acetaminophen 650 mg 06/16/25 04:59 Acetaminophen 325 Mg Tablet PO 07/16/25 04:58 Q6H PRN PAIN SCALE 1-3 (mild Lactated Ringer's 1,000 mls @ 200 mls/hr 06/16/25 05:00 06/16/25 10:33 Lactated Ringers IV 07/16/25 04:59 200 mls/hr .Q5H ANNETTE Administration Ketorolac Tromethamine 30 mg 06/16/25 04:59 06/16/25 05:16 Ketorolac Inj 30 Mg/Ml Vial IVP 06/21/25 04:58 30 mg Q6HR PRN Administration Pain 4-6 Morphine Sulfate 1 mg 06/16/25 04:59 06/16/25 10:37 Morphine Sulf Inj 10 Mg/Ml Vial IVP 06/21/25 04:58 1 mg Q6H PRN Administration PAIN SCALE 7-10 (Severe Nicotine 7 mg 06/16/25 12:00 Nicotine Patch 7 Mg/24 Hr Patch.Td24 TOP 07/16/25 11:59 QDAY ANNETTE Ondansetron HCl 4 mg 06/16/25 04:59 06/16/25 05:33 Ondansetron Inj 2 Mg/Ml Inj 2 Ml IVP 07/16/25 04:58 4 mg Q6H PRN Administration NAUSEA OR VOMITING Protocol Plan Patient is a 24 year old male with past medical history of alcohol abuse, tobacco use, and s/p cholecystectomy in 2019 who presented on 06/16 for abdominal pain with associated nausea, found to have acute pancreatitis on CT. #Acute pancreatitis, likely 2/2 to drug use #Hx of pancreatitis Patient has had at least 2 admission in 2021 also for pancreatitis, at that time alcohol related, less likely secondary to alcohol use as patient denies recent alcohol consumption and negative urine study vs cocaine & meth induced pancreatitis leading to acute vasoconstriction vs viral, can not rule out HIV vs idiopathy Noncontrast CTAP 06/16 showed significant edema surrounding the pancreas suggesting acute pancreatitis as well as the absence of a gallbladder which was removed in 2019. Utox was negative for alcohol but positive for meth and cocaine. Lipid panel 06/16/25 shows triglycerides 159, cholesterol 106, LDL 40, HDL 34 Plan: -Normal Saline IV fluids -advance diet as tolerated -pain control with Tylenol, [place], and Morphine -Zofran for nausea #Leukocytosis, likely reactive Elevated at 21 on admission, downtrending. S/p ceftriaxone IVP in ED. Arrived afebrile, low suspicion of infection but bacterial infection of pancreas can not be rule out given significant edema surroudning the pancreas. Plan -Blood culture penidng -will hold antibiotics -continue to monitor WBC and pyrexia #Substance abuse Utox positive for meth and cocaine. Patient denied illicit drug use. Previously negative on past admissions. Plan -Continue to monitor for agitation, consider Ativan if need be. - Manager Administrative patient on cessation #Tobacco Use Disorder 8-pack year history of smoking (since 16 years of age, 1 pack per day) Plan - Nicotine patch placed - Recommended cessation #Hx of alcohol abuse Patient denied alcohol use since previous admission, about 1 year ago. Negative alcohol urine screen. - Encouraged to continue sobriety Health Maintenance Disposition: home, likely tomorrow DVT prophylaxis: none needed GI prophylaxis: Zofran for nausea Diet: clear liquid, advance as tolerated CODE STATUS: FULL Patient plan of care was discussed with the resident, Dr. Mae, and attending physician, Dr. Gant. Mi Wagner, PGY-1 - The patient's plan was discussed with attending Dr. Alfreda Mae MD PGY2 Internal Medicine
--- NOTE | 2025-06-16 15:04 | PC.SS ---
Rounding note: Advancing diet, likely to discharge in 1 day. Discharge plan: Home.
[2025-06-16] MEDS: HYDROcodone/APAP 5/325 TABLET 1 TAB PO ×2 (15:50→23:55)
[2025-06-17] VITALS: BP 124/72; PULSE 45; PULSE 63; RESP 18; TEMP 36.3; O2SAT 96
[2025-06-17] MEDS: MORPHINE SULF INJ 10 MG/ML VIAL IVP (02:51)
[2025-06-17] MEDS: RINGERS LACTATED 1000 ML 1,000 ML 200 ML IV ×2 (02:53→07:13)
[2025-06-17 04:00] VITALS: BP 144/75; PULSE 49; PULSE 61; RESP 18; TEMP 36.1; O2SAT 97
[2025-06-17 06:12] LABS: Basophils # (Auto) 0.1 Thou/mm3 (0.0-0.2); Basophils % (Auto) 1 % (0-2.5); Eosinophils # (Auto) 1.0 Thou/mm3 (0.0-0.5); Eosinophils % (Auto) 9 % (0-10); Hematocrit 40.1 % (41.0-53.0); Hemoglobin 14.1 g/dL (13.5-16.0); Immature Granulocytes Auto 0.07 Thou/mm3 (0.00-0.00); Lymphocytes # (Auto) 3.2 Thou/mm3 (1.0-4.8); Lymphocytes % (Auto) 29 % (10-50); Mean Corpuscular HGB Conc 35.2 g/dl (31.0-37.0); Mean Corpuscular Hemoglobin 27.4 pg (25.0-35.0); Mean Corpuscular Volume 78 fL (80-100); Monocytes # (Auto) 0.8 Thou/mm3 (0.0-0.8); Monocytes % (Auto) 7 % (0-12); Neutrophils # (Auto) 6.0 Thou/mm3 (1.8-7.7); Neutrophils % (Auto) 54 % (37-80); Nucleated Red Blood Cell # 0.00 Thou/mm3 (0.00-0.00); Nucleated Red Blood Cell % 0 /100 WBC (0); Platelet Count 229 Thou/mm3 (140-440); RDW Standard Deviation 37.7 fL (35.1-43.9); Red Blood Count 5.15 Miln/mm3 (4.50-5.90); White Blood Count 11.1 Thou/mm3 (3.8-10.6)
[2025-06-17 06:42] LABS: Alanine Aminotransferase 52 U/L (10-49); Albumin, Serum 3.6 gm/dL (3.5-5.0); Albumin/Globulin Ratio 1.5 (1.2-2.2); Alkaline Phosphatase 91 U/L (46-116); Anion Gap 8 (7-16); Aspartate Amino Transferase 33 U/L (0-34); BUN/Creatinine Ratio 6 Ratio (12-20); Bilirubin,Total 0.6 mg/dL (0.3-1.2); Blood Urea Nitrogen < 5 mg/dL (9-23); Calcium 8.5 mg/dL (8.3-10.6); Calcium (Corrected) 8.8 mg/dL (8.5-10.1); Carbon Dioxide 25.4 mMol/L (20.0-31.0); Chloride 107 mMol/L (98-107); Creatinine (Component) 0.9 mg/dL (0.6-1.3); Estimated Creatinine Clearance 155.8 mL/min (>60); Globulin 2.4 gm/dL (2.3-3.5); Glucose 91 mg/dL (74-106); Magnesium 1.5 mg/dL (1.6-2.6); Osmolality,Calculated 276 (275-295); Phosphorous 3.0 mg/dL (2.4-5.1); Potassium 3.8 mMol/L (3.4-5.1); Sodium 140 mMol/L (136-145); Total Protein 6.0 gm/dL (5.7-8.2); eGFR > 60 See Note
[2025-06-17 07:34] VITALS: BP 141/81; PULSE 60; RESP 17; TEMP 36.2; O2SAT 99
[2025-06-17] MEDS: NICOTINE PATCH 7 MG/24 HR PATCH.TD24 TOP (10:05)
[2025-06-17] MEDS: HYDROcodone/APAP 5/325 TABLET 1 TAB PO (10:08)
[2025-06-17 11:16] VITALS: BP 127/70; PULSE 50; RESP 18; TEMP 36.2; O2SAT 93
[2025-06-17 12:14] VITALS: PULSE 63
--- NOTE | 2025-06-17 13:17 | PC.SS ---
Rounding: if pt tolerates advanced diet, poss late DC home
[2025-06-17 15:39] VITALS: BP 122/66; PULSE 58; RESP 18; TEMP 36.2; O2SAT 97
--- NOTE | 2025-06-17 18:37 | ESDS_ITS ---
Planned Discharge Date 06/17/25 DS: Providers Provider Date of admission: 06/16/25 10:45 Primary care physician: Physician No Primary/Family Admitting Provider: Boris Moreland MD Attending Provider on Admission: Julia Gant MD Attending Provider on DC: Josefina Mae MD Discharging Provider: Josefina Mae MD DS: Diagnosis Problem List Completed Was Problem List Reviewed/Reconciled?: Yes Hospital Course Hospital Course Hospital course: Summary: Patient is a 24-year-old male with a past medical history of alcohol use disorder (urine alcohol negative), substance use disorder, and repeated admissions for acute pancreatitis concern for chronic pancreatitis. Patient was admitted overnight on 06/16/2025 secondary to acute pancreatitis complaining of 9 out of 10 pain. Patient advised to stop any illicit substance use including cocaine and methamphetamines. Please follow-up with primary doctor for further recommendations ER Course: Vitals: Blood pressure 152/98, HR 61, RR 18, T97.8, SpO2 97% RA WBC: 21 (H)--> repeat 18.4 Sodium 140, potassium 3.7 BUN 12, creatinine 0.9, GFR greater than 60, glucose 121 Total bili 0.5, AST 36, ALT 44, lipase 895 CT abdomen 06/16/2025: Significant edema surrounding the pancreas--> acute pancreatitis, Lipase 895 Medication: Famotidine, Morphine, NS bolus X 2, Ceftriaxone 2 gm X 1 Hospital Course: On admission patient was started on with aggressive fluid resuscitation at a rate of 1.5 mL/kg/h. Patient made n.p.o. given diffuse abdominal tenderness with 9 out of 10 pain. Pain management on board. Patient started on IV antibiotics given concern for leukocytosis. Leukocytosis is likely secondary reactive. No pyrexia reported, WBC count now downtrending, and no chills reported. Blood culture negative at 24 hours, please follow-up as outpatient with further results. Lipid panel: Triglycerides 159, cholesterol, 106, LDL 40, HDL 34 ASVD, no statins recommended. Acute pancreatitis less likely secondary to triglyceridemia. Patient's diet advanced to full liquids on day 1 for dinner. Patient tolerated diet well. Patient was transition to regular diet the evening of 06/17/2025, patient tolerated diet well. Reviewed wound discontinue smoking and substance use disorder including meth and cocaine as both of these may be leading to worsening pancreatitis. #Acute pancreatitis, likely 2/2 to drug use #Hx of pancreatitis #Leukocytosis, likely reactive #Substance abuse #Tobacco Use Disorder #Hx of alcohol abuse Safe to Discharge home Instructions: -Recommend Alcohol abstinence completely to prevent further episodes of pancreatitis, also recommend abstinence from drugs and alcohol -Please follow up with your primary care provider within one week of discharge -If your symptoms worsen,please seek immediate medical attention and return to your nearest emergency room -If you do not have a primary care provider, you may follow up at the [facility] at [address] [place] [address] [address], [place] [address], - The patient's plan was discussed with attending Dr. Alfreda Mae MD PGY2 Internal Medicine Time Spent with Patient Time attestation: Total time spent providing and/or coordinating discharge services: at least thirty minutes of care and coordination Time spent: Greater than 30 minutes Exam Vital Signs Temp Pulse Resp BP Pulse Ox O2 Del Method 97.2 F 58 L 18 122/66 97 Room Air 06/17/25 15:39 06/17/25 15:39 06/17/25 15:39 06/17/25 15:39 06/17/25 15:39 06/17/25 15:39 Narrative Exam General Appearance: Alert & Oriented X3, well-nourished female who is lying in bed in no acute distress HEENT: Skull symmetrical and atraumatic. Conjunctivae pink and moist. Pupils equal, round, reactive to light and accommodation (PERRL). External ear without lesion or discharge. Straight, nares patient, mucosa pink, no discharge. No thyroid nodule appreciated. No cervical lymphadenopathy. Cardio: Normal Rate and Rhythm with S1 and S2 heart sounds. No murmurs or extra heart sounds auscultated. No bruits on carotid auscultation. No peripheral edema or cyanosis. Lungs: Symmetric with good expansion. Chest and back non-tender. Breath sounds vesicular without crackles, wheezing or rhonchi Abdomen: Non-tender, Non-distended, Normal Reactive Bowel Sounds Neuro: Alert, cooperative, oriented to person, place, and time. Speech clear. CN grossly intact. Upper motor strength 5/5 and Lower motor strength 5/5. Sensation intact. Discharge Plan Plan Patient Disposition: HOME (Self Care) Patient condition on transfer: Stable Care Plan Goals: -Recommend Alcohol abstinence completely to prevent further episodes of pancreatitis, also recommend abstinence from drugs and alcohol -Please follow up with your primary care provider within one week of discharge -If your symptoms worsen,please seek immediate medical attention and return to your nearest emergency room -If you do not have a primary care provider, you may follow up at the [facility] at [facility] [address], [place] [address], Prescriptions/Referrals Prescriptions/Med Rec: New hydrocodone-acetaminophen 5-325 mg Tablet 1 tab PO Q8HR MDD one pill 3 times daily PRN (Reason: Pain) 3 Days Qty: 9 0RF Referrals: No Primary/Family,Physician [Primary Care Provider] - Patient/Caregiver Discharge Instructions Meds to Beds: No Discharge Activity: activity as tolerated Education Materials: Pancreatitis Acute Dc, ED Drug Abuse Print Language: Welsh Stand Alone Forms: [facility] Award Info., Patient Portal Info Letter Discharge Order Discharge Orders: Discharge (Routine); Ordered 06/17/25 Ordered By: Josefina Mae Quality Discharge Quality Measures VTE prophylaxis Attestestation MD Attestation I have examined the patient, reviewed labs and imaging findings, discussed the case with the resident(s), and reviewed entered orders. I agree with the plan of care as outlined in this note. Time Spent: [address] Oskar MD
[2025-06-18 07:36] LABS: Amylase 743 U/L (30-118)
== END 2025-06-17 17:00 | disposition home or self-care (01) | DRG 282 ==
LOC: SERX 04:39 → S3NX 07:54 → SERHOLD 09:19 → S3NX 09:20 → SERHOLD 09:20
PROVIDERS: Nurse Practitioner Family; Admitting Provider Internal Medicine; Emergency Provider Emergency Medicine; Visit Provider Internal Medicine
DX: K85.90 Acute pancreatitis without necrosis or infection, unspecified (principal); E78.1 Pure hyperglyceridemia; F17.210 Nicotine dependence, cigarettes, uncomplicated; F14.10 Cocaine abuse, uncomplicated; Z90.49 Acquired absence of other specified parts of digestive tract
CPT/HCPCS: 36415; 74176; 80053; 80061; 80307; 80320; 81001; 82150; 83036; 83605; 83690; 83735; 84100; 85025; 87040; 96361; 96365; 96375; 96376; 99284; J0696; J1885; J2270; J2405; J7030; J7050; J7120; A9270; G0480

== ENCOUNTER 2025-07-21 17:46 | Inpatient (IN) | payer MEDICAID, SELFPAY ==
--- NOTE | 2025-07-21 19:01 | XR_ITS ---
Examination: CT abdomen and pelvis without contrast. Coronal 3-D reconstructions. Sagittal 2-D reconstructions. Date and time of exam:July 21, 2025, 1924 hours, comparison June 16, 2025. INDICATIONS: Onset abdominal pain today, history acute pancreatitis CTDI: vol (mGy): 9.18 DLP: (mGycm): 593. Technique: Axial images of the abdomen have been obtained, 3 mm slice thickness Intravenous contrast material has not been administered. Low dose protocols were performed. One or more of the following dose reduction techniques were used; automated exposure control, adjustment of the mA and/or KV according to patient size, use of iterative reconstruction technique. Findings: No focal liver lesions. Absent gallbladder. Acute pancreatitis, edema surrounding the pancreas No renal or ureteral calculi. No bowel obstruction Normal appendix Urinary bladder is intact The osseous structures are intact. IMPRESSION: Acute pancreatitis, no pseudocyst
[2025-07-21 19:10] VITALS: BP 132/88; PULSE 78; RESP 18; TEMP 36.9; O2SAT 99
[2025-07-21 19:46] LABS: Basophils # (Auto) 0.1 Thou/mm3 (0.0-0.2); Basophils % (Auto) 1 % (0-2.5); Eosinophils # (Auto) 0.3 Thou/mm3 (0.0-0.5); Eosinophils % (Auto) 2 % (0-10); Hematocrit 47.3 % (41.0-53.0); Hemoglobin 16.3 g/dL (13.5-16.0); Immature Granulocytes Auto 0.10 Thou/mm3 (0.00-0.00); Lymphocytes # (Auto) 2.4 Thou/mm3 (1.0-4.8); Lymphocytes % (Auto) 13 % (10-50); Mean Corpuscular HGB Conc 34.5 g/dl (31.0-37.0); Mean Corpuscular Hemoglobin 26.9 pg (25.0-35.0); Mean Corpuscular Volume 78 fL (80-100); Monocytes # (Auto) 1.0 Thou/mm3 (0.0-0.8); Monocytes % (Auto) 6 % (0-12); Neutrophils # (Auto) 13.9 Thou/mm3 (1.8-7.7); Neutrophils % (Auto) 78 % (37-80); Nucleated Red Blood Cell # 0.00 Thou/mm3 (0.00-0.00); Nucleated Red Blood Cell % 0 /100 WBC (0); Platelet Count 295 Thou/mm3 (140-440); RDW Standard Deviation 37.5 fL (35.1-43.9); Red Blood Count 6.06 Miln/mm3 (4.50-5.90); White Blood Count 17.7 Thou/mm3 (3.8-10.6)
[2025-07-21 20:11] LABS: Alanine Aminotransferase 34 U/L (10-49); Albumin, Serum 4.7 gm/dL (3.5-5.0); Albumin/Globulin Ratio 1.5 (1.2-2.2); Alkaline Phosphatase 106 U/L (46-116); Anion Gap 9 (7-16); Aspartate Amino Transferase 20 U/L (0-34); BUN/Creatinine Ratio 8 Ratio (12-20); Bilirubin,Total 0.6 mg/dL (0.3-1.2); Blood Urea Nitrogen 7 mg/dL (9-23); Calcium 9.9 mg/dL (8.3-10.6); Calcium (Corrected) 9.9 mg/dL (8.5-10.1); Carbon Dioxide 24.9 mMol/L (20.0-31.0); Chloride 106 mMol/L (98-107); Creatinine (Component) 0.9 mg/dL (0.6-1.3); Globulin 3.1 gm/dL (2.3-3.5); Glucose 101 mg/dL (74-106); Osmolality,Calculated 277 (275-295); Potassium 3.7 mMol/L (3.4-5.1); Sodium 140 mMol/L (136-145); Total Protein 7.8 gm/dL (5.7-8.2); eGFR > 60 See Note
[2025-07-21 20:23] LABS: Lipase 2175 U/L (12-53)
--- NOTE | 2025-07-21 21:58 | PD.EDRME ---
Rapid Medical Screening Exam RME Arrival date/time: 07/21/25 17:46 This is a case of 54-year-old male with no medical history came into the emergency room due to abdominal pain nausea vomiting for 3 days worsening of the symptoms this patient decided to start consult here in the emergency room Chief Complaint: Abdominal Pain Time Seen by Provider: 07/21/25 18:26 Vital signs: Vital Signs Temperature 98.5 F 07/21/25 19:10 Pulse Rate 78 07/21/25 19:10 Respiratory Rate 18 07/21/25 19:10 Blood Pressure 132/88 H 07/21/25 19:10 Pulse Oximetry (%) 99 07/21/25 19:10 Oxygen Delivery Method Room Air 07/21/25 19:10
--- NOTE | 2025-07-21 22:15 | PC.NURSE ---
CALLED PT IN ER LOBBY AND OUTSIDE OF ER AND NO ANSWER
--- NOTE | 2025-07-21 22:30 | PC.NURSE ---
CALLED PT OUTSIDE OF ER AND IN ER LOBBY AND NO ANSWER
--- NOTE | 2025-07-21 22:40 | PC.NURSE ---
CALLED PT IN ER LOBBY AND OUTSIDE OF ER AND NO ANSWER
[2025-07-21 23:56] VITALS: BP 149/83; PULSE 53; RESP 18; TEMP 36.6; O2SAT 98
[2025-07-22] VITALS (9 sets, daily range): BP systolic 110–134; BP diastolic 64–83; PULSE 37–70; RESP 13–18; TEMP 36.1–36.9; O2SAT 96–99; BMI 32.7
--- NOTE | 2025-07-22 01:38 | EDNOTE_ITS ---
ED Abdominal Pain RME/HPI General Chief Complaint: Abdominal Pain Stated complaint: ABD PAIN X 1 DAY Time seen by provider: 07/21/25 18:26 Arrival date/time: 07/21/25 17:46 This is a case of 24-year-old male with history of heavy alcohol drinker and acute pancreatitis came in in the emergency room due to generalized abdominal pain nausea and vomiting for 2 days worsening of the symptoms this patient decided to sought consult here in the emergency room Source: patient Limitations: no limitations RME / HPI RME / HPI narrative: 07/21/25 17:46 This is a case of 54-year-old male with no medical history came into the emergency room due to abdominal pain nausea vomiting for 3 days worsening of the symptoms this patient decided to start consult here in the emergency room Related Data Allergies Allergy/AdvReac Type Severity Reaction Status Date / Time No Known Allergies Allergy Verified 07/21/25 17:49 Review of Systems Review of Systems Systems Reviewed: All systems reviewed, normal except as documented Constitutional Constitutional: Reports system reviewed and no additional complaints, except as documented and Reports as per HPI Cardiovascular Cardiovascular: Reports system reviewed and no additional complaints, except as documented and Reports as per HPI Respiratory Respiratory: Reports system reviewed and no additional complaints, except as documented and Reports as per HPI Gastrointestinal Gastrointestinal: Reports system reviewed and no additional complaints, except as documented, Reports as per HPI, Reports abdominal pain, Reports nausea and Reports vomiting Genitourinary Genitourinary: Reports system reviewed and no additional complaints, except as documented and Reports as per HPI Musculoskeletal Musculoskeletal: Reports system reviewed and no additional complaints, except as documented and Reports as per HPI Neurologic Neurologic: Reports system reviewed and no additional complaints, except as documented and Reports as per HPI Past Medical History Past Medical History NEUROLOGIC: Negative Neurological Disorders CARDIAC: Negative Cardiac Disorders or Congestive Heart Failure RESPIRATORY: Negative Chronic Obstructive Pulmonary Disease (COPD) or Asthma GASTROINTESTINAL: Positive Pancreatitis and Gall Bladder Disease; Negative Gastrointestinal Disorders or Hepatitis GENITOURINARY: Negative Genitourinary Disorders or Renal Disease MUSCULOSKELETAL: Negative Musculoskeletal Disorders ENDOCRINE: Negative Endocrine Disorders, Diabetes Mellitus Type 1 or Diabetes Mellitus Type 2 HEMATOLOGIC: Negative Blood Disorders or Sickle Cell Disease OTHER HISTORY: Negative Autoimmune Disease, Anesthesia Reactions, MRSA, VRSA, Vancomycin-Resistant Enterococci, Human Immunodeficiency Virus (HIV), Chicken Pox, Measles, Mumps, Rubella (Divehi Measles), Pertussis, Clostridium Difficile or Cancer Family History FAMILY HISTORY: Negative Family Cardiac Disorders, Family Cancer, Family Surgery or Family Anesthesia Reaction Surgical History SURGICAL: Positive Abdominal Surgery; Negative Cardiac Surgery Social History SMOKING STATUS: Current every day smoker SECOND HAND EXPOSURE: No SUBSTANCE USE: does not use ED Exam General Limitations: Present no limitations General appearance: Present alert, in no apparent distress and other (Patient is awake alert oriented not in distress nontoxic looking well-hydrated well- nourished) Head Head exam: Present atraumatic, normocephalic and normal inspection Eye Eye exam: Present normal appearance, PERRL and EOMI ENT ENT exam: Present normal exam, normal oropharynx and mucous membranes moist Neck Neck exam: Present normal inspection, full ROM and trachea midline; Absent tenderness, meningismus, lymphadenopathy or thyromegaly Chest Chest inspection: Present normal inspection and symmetric chest wall rise; Absent tenderness, rash or abscess Respiratory Respiratory exam: Present normal lung sounds bilaterally; Absent respiratory distress, wheezes, stridor, accessory muscle use or prolonged expiratory phase Cardiovascular Cardiovascular exam: Present regular rate, normal rhythm and normal heart sounds; Absent bradycardia, tachycardia, irregular rhythm, systolic murmur or diastolic murmur Abdominal Exam Abdominal exam: Present soft, tenderness (Mild to moderate tenderness on both upper abdomen) and normal bowel sounds; Absent distention, guarding, rebound, rigidity, diminished bowel sounds, hyperactive bowel sounds, hypoactive bowel sounds, organomegaly, trauma, incision, psoas sign, obturator sign, Barton's sign, Rovsing's sign or tenderness at McBurney's Point Extremities Exam Extremities exam: Present normal inspection and full ROM Back Exam Back exam: Present normal inspection and full ROM Neurological Exam Neurological exam: Present alert, oriented X3, CN II-XII intact, normal gait and reflexes normal; Absent motor sensory deficit Psychiatric Psychiatric exam: Present normal affect and normal mood Skin Skin exam: Present warm, dry, intact and normal color Course Quality Measures none Orders Category Date Time Status COVID-19 Screening Questionnaire NOW Care 07/22/25 01:36 Active COVID-19 Screening Questionnaire NOW Care 07/22/25 01:36 Completed Decision to Admit X1 Care 07/22/25 01:[address] abdomen pelvis wo con Stat Exams 07/21/25 19:01 Completed Blood Culture (Lab) Stat Lab 07/22/25 01:37 Ordered CBC Stat Lab 07/21/25 19:36 Completed Comprehensive Metabolic Panel Stat Lab 07/21/25 19:36 Completed Lactic Acid [Lactate (Lactic Acid)] Stat Lab 07/22/25 01:37 Ordered Lipase Stat Lab 07/21/25 19:36 Completed Morphine Inj Med 07/22/25 01:35 Discontinued 4 mg IVP X1 ONE Ondansetron Inj [Zofran Inj] Med 07/22/25 01:35 Discontinued 4 mg IVP X1 ONE Pantoprazole Inj [Protonix Inj] Med 07/22/25 01:35 Discontinued 40 mg IVP X1 ONE Sodium Chloride 0.9% 1000 ml [Ns] 1,000 ml Med 07/22/25 01:35 Active IV 999 mls/hr Vital Signs Vital signs: Vital Signs Temperature 98.5 F 07/21/25 19:10 Pulse Rate 78 07/21/25 19:10 Respiratory Rate 18 07/21/25 19:10 Blood Pressure 132/88 H 07/21/25 19:10 Pulse Oximetry (%) 99 07/21/25 19:10 Oxygen Delivery Method Room Air 07/21/25 19:10 Patient oxygen saturation is 99% in room air Abdominal Pain MDM MDM Narrative MDM Narrative:: This is a case of 24-year-old male with history of heavy alcohol drinker and acute pancreatitis came in in the emergency room due to generalized abdominal pain nausea and vomiting for 2 days worsening of the symptoms this patient decided to sought consult here in the emergency room physical examination patient is awake alert oriented not in distress nontoxic looking well-hydrated well-nourished patient lungs sound is clear no crackles no rales no retraction no stridor abdominal exam is benign nonsurgical with mild to moderate tenderness in the both upper abdomen no guarding no rebound no rigidity negative psoas negative straight or negative Rovsing's negative McBurney's no Barton sign negative CVA tenderness excellent skin turgor the rest of the physical examination and neurological exam is normal and unremarkable blood test showed l eukocytosis of 17.7 still pending lactic acid and blood culture patient has no anemia platelet is normal no electrolyte imbalance kidney and liver function is normal patient lipase [id number] urinalysis is normal CT scan showed an absent of gallbladder but with acute pancreatitis based on my physical examination and history decision to admit the patient here in the emergency room for further evaluation and treatment was made I spoke to Dr. Jade discussed patient condition history and physical examination and agreed that the patient need to be admitted and accept patient admission patient was given a bolus of normal saline Zofran for vomiting morphine for pain and Protonix discussed patient his admission and agreed Patient data External records reviewed:: [facility] previous records Clinical information provided by:: patient Social determinants that could affect healthcare access:: none Patient has the following chronic illnesses:: None How is presenting disease/condition affected by chronic disease/condition?: no chronic disease Evaluation data The following diagnostics were reviewed and interpreted by me:: lab results and radiology exam(s) Lab and/or radiology exams considered but not ordered:: Reviewed Interpretation Summary: Reviewed Medications / Prescriptions Medications or Prescriptions considered but not ordered:: Given Medication administrations:: Medication Administration History Sodium Chloride (Ns) 1,000 mls @ 999 mls/hr IV .Q1H1M ONE Stop: 07/22/25 02:35 Discontinued Medications Morphine Sulfate (Morphine Sulf Inj 10 Mg/Ml Vial) 4 mg IVP X1 ONE Stop: 07/22/25 01:36 Ondansetron HCl (Ondansetron Inj 2 Mg/Ml Inj 2 Ml) 4 mg IVP X1 ONE; Protocol Stop: 07/22/25 01:36 Pantoprazole Sodium (Pantoprazole Inj 40 Mg Vial) 40 mg IVP X1 ONE Stop: 07/22/25 01:36 Given Consultations Consultation(s) initiated? (list below): Yes Consultation #1 (Physician, Specialty, Details): Dr. Jade discussed patient condition history and examination relayed result of the blood test and CT scan agreed that the patient need to be admitted and accept patient admission Diagnosis Differential diagnosis abdominal pain: abdominal pain, acute appendicitis, calculus of kidney, constipation, diverticulitis, endometriosis, gastroenteritis and pancreatitis Most likely diagnosis given after review of the tests above:: Acute pancreatitis Admission Indicated Admission indicated?: indicated Explain why admission is indicated or not indicated:: Acute pancreatitis Admission Request Was there a request for admission?: Yes Admission Attestation Admission request attestation: Discussed case with [] from Hospitalist service regarding admission. Discussed patients ED course, exam findings, labs, and radiology results. The Hospitalist [agrees,declines] to accept the patient for admission. Disposition Plan Disposition Plan: Admit Discharge Plan Plan Patient Disposition: Admit Acute Care w/in Hospital Patient condition on transfer: Stable Prescriptions/Referrals Referrals: No Primary/Family,Physician [Primary Care Provider] - In 1 week Problem List Clinical Impression: Acute pancreatitis, Abdominal pain Patient/Caregiver Discharge Instructions Education Materials: Abdominal Pain, ED Pancreatitis Print Language: Indonesian Stand Alone Forms: [employer]en Award Info., Patient Portal Info Letter PA/GREENHOUSE TECHNICIAN Supervising Physician PA/GREENHOUSE TECHNICIAN Supervising Physician: Dr. Khanh URBINA
[2025-07-22] MEDS: ONDANSETRON INJ 2 MG/ML INJ 2 ML 4 MG IVP (01:45)
[2025-07-22] MEDS: MORPHINE SULF INJ 10 MG/ML VIAL 4 MG IVP (01:45)
[2025-07-22] MEDS: SODIUM CHLORIDE 0.9% 1000 ML 1,000 ML 999 ML IV (01:46)
[2025-07-22 02:10] LABS: Lactate (Lactic Acid) 0.6 mMol/L (0.4-2.0)
--- NOTE | 2025-07-22 03:15 | ESHP_ITS ---
<Statement entered by Mainor Back MD - 07/22/25 08:44> I have discussed and was present for the essential components of the history, physical examination, diagnosis, and treatment plan with the resident. I agree with the patient's care as documented by the resident and amended herein by me. Mainor Back MD FACP. Documentation for date of: 07/22/25 HPI History of Present Illness Chief complaint: Abdominal pain History of present illness: 24 y/o M with PMHx significant for polysubstance abuse, alcohol abuse, recurrent acute pancreatitis presents chief complaint of 1 day of significant abdominal pain, with associated nausea and 1 episode of nonbloody emesis. Patient reports his symptoms began suddenly, with progressive worsening. Nausea is mild, maintains appetite but eating is painful. Denies fevers, chills, chest pain, shortness of breath. ED COURSE: Labs significant for: WBC 17.7, hemoglobin 16.3, bicarb 24.9. Lipase 2175. Imaging significant for: CT A/P showing acute pancreatitis with edema, no pseudocyst. Received 1 L bolus normal saline, morphine in the ED. PMH: Polysubstance abuse, alcohol abuse, acute pancreatitis PSH: Cholecystectomy SH: 8-pack-year smoking history, active smoker. Reports he quit drinking 2 years ago. Denies any drug use, however previous U tox positive for methamphetamines, cocaine. Allergies:?NKDA Medications: None Review of Systems Review of Systems Systems Reviewed: All systems reviewed, normal except as documented Past Medical History Past Medical History Comments PMH COMMENT: PMH: Polysubstance abuse, alcohol abuse, acute pancreatitis PSH: Cholecystectomy SH: 8-pack-year smoking history, active smoker. Reports he quit drinking 2 years ago. Denies any drug use, however previous U tox positive for methamphetamines, cocaine. Allergies:?NKDA Medications: None Exam Vital Signs Temp Pulse Resp BP Pulse Ox O2 Del Method 98.4 F 60 18 134/81 H 99 Room Air 07/22/25 01:33 07/22/25 01:33 07/22/25 01:33 07/22/25 01:33 07/22/25 01:33 07/22/25 01:33 Narrative Exam PE: Gen: Well-developed and well-nourished. HEENT: NCAT, PERRLA, EOMI, MMM, anicteric conjunctivae. CVS: normal S1 and S2. RRR. No M/R/G. Resp: CTA B/L. No rhonchi, rales, crackles or wheezing. Abd: soft, non-distended. BS+ in all 4 quadrants. Mild epigastric pain. MSK: Good ROM in BUE & BLE. No edema or rash. Neuro: CN II-XII grossly intact. Strength 5/5 in BUE & BLE. Alert and oriented x3. Psych: appropriate mood and affect. Results: Labs 07/21/25 19:36 07/21/25 19:36 Labs: Short CBC 07/21/25 Range/Units 19:36 WBC 17.7 H (3.8-10.6) Thou/mm3 Hgb 16.3 H (13.5-16.0) g/dL Hct 47.3 (41.0-53.0) % Plt Count 295 D (140-440) Thou/mm3 BMP 07/21/25 19:36 Sodium 140 Potassium 3.7 Chloride 106 Carbon Dioxide 24.9 BUN 7 L Creatinine 0.9 Glucose 101 Calcium 9.9 Liver Function 07/21/25 Range/Units 19:36 Total Bilirubin 0.6 (0.3-1.2) mg/dL AST 20 (0-34) U/L ALT 34 (10-49) U/L Alkaline Phosphatase 106 (46-116) U/L Albumin 4.7 (3.5-5.0) gm/dL Quality Measures Quality Measures VTE prophylaxis Medications Home Medications and Allergies Allergies Allergy/AdvReac Type Severity Reaction Status Date / Time No Known Allergies Allergy Verified 07/21/25 17:49 Visit Medications Acetaminophen (Acetaminophen 325 Mg Tablet) 650 mg PO Q6HR PRN PRN Reason: Fever >100.4 or pain Stop: 08/21/25 03:12 Hydrocodone Bitart/Acetaminophen (Hydrocodone/Apap 5/325 Tablet) 1 tab PO Q6HR PRN PRN Reason: PAIN SCALE 4-6 (Moderate Stop: 07/27/25 03:12 Enoxaparin Sodium (Enoxaparin Sod Inj 40 Mg/0.4 Ml Syringe) 40 mg SC QDAY ANNETTE Stop: 08/05/25 08:59 Sodium Chloride (Ns) 1,000 mls @ 100 mls/hr IV .Q10H ANNETTE Stop: 07/23/25 09:14 Morphine Sulfate (Morphine Sulf Inj 10 Mg/Ml Vial) 2 mg IVP Q2H PRN PRN Reason: PAIN SCALE 7-10 (Severe Stop: 07/27/25 03:06 Ondansetron HCl (Ondansetron Inj 2 Mg/Ml Inj 2 Ml) 4 mg IVP Q6H PRN; Protocol PRN Reason: NAUSEA OR VOMITING Stop: 08/21/25 03:06 Pantoprazole Sodium (Pantoprazole Inj 40 Mg Vial) 40 mg IVP QDAY [facility] Stop: 08/21/25 08:59 Discontinued Medications Sodium Chloride (Ns) 1,000 mls @ 999 mls/hr IV .Q1H1M ONE Stop: 07/22/25 02:35 Last Infusion: 07/22/25 03:14 Dose: Infused Morphine Sulfate (Morphine Sulf Inj 10 Mg/Ml Vial) 4 mg IVP X1 ONE Stop: 07/22/25 01:36 Last Admin: 07/22/25 01:45 Dose: 4 mg Ondansetron HCl (Ondansetron Inj 2 Mg/Ml Inj 2 Ml) 4 mg IVP X1 ONE; Protocol Stop: 07/22/25 01:36 Last Admin: 07/22/25 01:45 Dose: 4 mg Pantoprazole Sodium (Pantoprazole Inj 40 Mg Vial) 40 mg IVP X1 ONE Stop: 07/22/25 01:36 Last Admin: 07/22/25 01:45 Dose: 40 mg Assessment & Plan Plan 24 y/o M with PMHx significant for polysubstance abuse, alcohol abuse, recurrent acute pancreatitis presents chief complaint of 1 day of significant abdominal pain, with associated nausea and 1 episode of nonbloody emesis, admitted for acute pancreatitis. #Acute pancreatitis Patient presented chief complaint abdominal pain with associated nonbloody emesis x 1 day. Pain worse when eating. Patient's history of recurrent pancreatitis, likely secondary to alcohol abuse or substance abuse. Patient denies alcohol or illicit drug use, however previous U-Tox positive for cocaine and methamphetamine. CT A/P showed acute pancreatitis with edema surrounding pancreas. Lipase 2175. Mild epigastric tenderness on exam. Received 1 L bolus normal saline in the ED. - N.p.o. except meds - IVF: Normal saline at 100 mL/h x 3 L - Triglycerides ordered, follow-up - Morphine 2 mg IV every 2 hours as needed for severe pain - [place] 5 every 6 hours as needed for moderate pain - Advance diet as tolerated #Leukocytosis WBC 17.7 on admission. Patient afebrile, vitals WNL, no history of recent fevers, chills. Most likely reactive to acute pancreatitis. - Monitor #Polysubstance abuse, patient history Patient denies any illicit drug use, but previous history of positive for cocaine methamphetamines. May be contributing to recurrent pancreatitis. - [employer] patient regarding polysubstance abuse DVT prophylaxis: Lovenox GI prophylaxis: Protonix Diet: N.p.o., hold aspirin Lines: Peripheral IV Code status: Full code Plan of care discussed with attending Dr. Back. Kalpesh Parish MD PGY?2
[2025-07-22] MEDS: SODIUM CHLORIDE 0.9% 1000 ML 1,000 ML 100 ML IV (04:04)
[2025-07-22 05:13] LABS: Basophils # (Auto) 0.0 Thou/mm3 (0.0-0.2); Basophils % (Auto) 0 % (0-2.5); Eosinophils # (Auto) 0.3 Thou/mm3 (0.0-0.5); Eosinophils % (Auto) 2 % (0-10); Hematocrit 43.3 % (41.0-53.0); Hemoglobin 14.7 g/dL (13.5-16.0); Immature Granulocytes Auto 0.06 Thou/mm3 (0.00-0.00); Lymphocytes # (Auto) 2.0 Thou/mm3 (1.0-4.8); Lymphocytes % (Auto) 18 % (10-50); Mean Corpuscular HGB Conc 33.9 g/dl (31.0-37.0); Mean Corpuscular Hemoglobin 26.7 pg (25.0-35.0); Mean Corpuscular Volume 79 fL (80-100); Monocytes # (Auto) 0.9 Thou/mm3 (0.0-0.8); Monocytes % (Auto) 8 % (0-12); Neutrophils # (Auto) 8.2 Thou/mm3 (1.8-7.7); Neutrophils % (Auto) 72 % (37-80); Nucleated Red Blood Cell # 0.00 Thou/mm3 (0.00-0.00); Nucleated Red Blood Cell % 0 /100 WBC (0); Platelet Count 248 Thou/mm3 (140-440); RDW Standard Deviation 38.0 fL (35.1-43.9); Red Blood Count 5.51 Miln/mm3 (4.50-5.90); White Blood Count 11.5 Thou/mm3 (3.8-10.6)
[2025-07-22] MEDS: HYDROcodone/APAP 5/325 TABLET 1 TAB PO ×2 (05:35→12:44)
[2025-07-22 05:37] LABS: Alanine Aminotransferase 25 U/L (10-49); Albumin, Serum 4.0 gm/dL (3.5-5.0); Albumin/Globulin Ratio 1.6 (1.2-2.2); Alkaline Phosphatase 98 U/L (46-116); Anion Gap 10 (7-16); Aspartate Amino Transferase 15 U/L (0-34); BUN/Creatinine Ratio 8 Ratio (12-20); Bilirubin,Total 0.8 mg/dL (0.3-1.2); Blood Urea Nitrogen 7 mg/dL (9-23); Calcium 9.2 mg/dL (8.3-10.6); Calcium (Corrected) 9.2 mg/dL (8.5-10.1); Carbon Dioxide 23.9 mMol/L (20.0-31.0); Cardiac Risk Estimate 3.7 RATIO (4.0-6.7); Chloride 106 mMol/L (98-107); Cholesterol 99 mg/dL (132-200); Creatinine (Component) 0.9 mg/dL (0.6-1.3); Globulin 2.5 gm/dL (2.3-3.5); Glucose 106 mg/dL (74-106); HDL Cholesterol 27 mg/dL (40-60); LDL Cholesterol,Calculated 49 mg/dL (0-130); Magnesium 1.8 mg/dL (1.6-2.6); Osmolality,Calculated 277 (275-295); Potassium 3.8 mMol/L (3.4-5.1); Sodium 140 mMol/L (136-145); Total Protein 6.5 gm/dL (5.7-8.2); Triglycerides 113 mg/dL (30-150); eGFR > 60 See Note
--- NOTE | 2025-07-22 06:06 | EKG_ITS ---
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
--- NOTE | 2025-07-22 07:33 | EKG_ITS ---
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
--- NOTE | 2025-07-22 07:35 | PC.NURSE ---
RAPID RESPOND CALLED AT 0735, D/T HR 37 SUSTAINING IN 40'S. RECOMMENDATION UPGRADE PATIENT TO TELE FOR CLOSER MONITORING. MD AT BEDSIDE NO NEW ORDERS PT NOT UPGRADED.
[2025-07-22] MEDS: ENOXAPARIN SOD INJ 40 MG/0.4 ML SYRINGE SC (08:53)
[2025-07-22] MEDS: SODIUM CHLORIDE 0.9% 1000 ML 1,000 ML 200 ML IV ×2 (08:54→12:19)
--- NOTE | 2025-07-22 09:36 | PD.RESPRO ---
Documentation for date of: 07/22/25 Exam Vital Signs Temp Pulse Resp BP Pulse Ox O2 Del Method 97.1 F 70 17 110/79 96 Room Air 07/22/25 08:00 07/22/25 08:00 07/22/25 08:00 07/22/25 08:00 07/22/25 08:00 07/22/25 08:00 Objective Labs 07/22/25 04:38 07/22/25 04:38 Labs: Laboratory Results - last 24 hr 07/21/25 07/22/25 07/22/25 19:36 02:03 04:38 WBC 17.7 H 11.5 H D RBC 6.06 H 5.51 Hgb 16.3 H 14.7 Hct 47.3 43.3 MCV 78 L 79 L MCH 26.9 26.7 MCHC 34.5 33.9 RDW Std Deviation 37.5 38.0 Plt Count 295 D 248 D Neut % (Auto) 78 72 Lymph % (Auto) 13 18 Simpson % (Auto) 6 8 Eos % (Auto) 2 2 Baso % (Auto) 1 0 Neut # (Auto) 13.9 H 8.2 H Lymph # (Auto) 2.4 2.0 Simpson # (Auto) 1.0 H 0.9 H Eos # (Auto) 0.3 0.3 Baso # (Auto) 0.1 0.0 Immature Gran # (Auto) 0.10 H 0.06 H Absolute Nucleated RBC 0.00 0.00 Immature Gran % 1 H 1 H Nucleated RBC % 0 0 Sodium 140 140 Potassium 3.7 3.8 Chloride 106 106 Carbon Dioxide 24.9 23.9 Anion Gap 9 10 BUN 7 L 7 L Creatinine 0.9 0.9 Estim Creat Clear Calc Not Performed. Not Performed. eGFR > 60 > 60 BUN/Creatinine Ratio 8 L 8 L Glucose 101 106 Calculated Osmolality 277 277 Lactic Acid 0.6 Calcium 9.9 9.2 Corrected Calcium 9.9 9.2 Magnesium 1.8 Total Bilirubin 0.6 0.8 AST 20 15 ALT 34 25 Alkaline Phosphatase 106 98 Total Protein 7.8 6.5 Albumin 4.7 4.0 D Globulin 3.1 2.5 Albumin/Globulin Ratio 1.5 1.6 Triglycerides 113 Cholesterol 99 L LDL Cholesterol, Calc 49 HDL Cholesterol 27 L Cholesterol/HDL Ratio 3.7 L Lipase 2175 H* Quality Measures Quality Measures VTE prophylaxis Assessment & Plan Assessment Current Active Medications: Generic Name Dose Route Start Last Admin Trade Name Freq PRN Reason Stop Dose Admin Acetaminophen 650 mg 07/22/25 03:13 Acetaminophen 325 Mg Tablet PO 08/21/25 03:12 Q6HR PRN Fever >100.4 or pain 1-3 Hydrocodone Bitart/Acetaminophen 1 tab 07/22/25 03:13 07/22/25 05:35 Hydrocodone/Apap 5/325 Tablet PO 07/27/25 03:12 1 tab Q6HR PRN Administration PAIN SCALE 4-6 (Moderate Enoxaparin Sodium 40 mg 07/22/25 09:00 07/22/25 08:53 Enoxaparin Sod Inj 40 Mg/0.4 Ml Syringe SC 08/05/25 08:59 40 mg QDAY ANNETTE Administration Sodium Chloride 1,000 mls @ 200 mls/hr 07/22/25 08:30 07/22/25 08:54 Ns IV 07/22/25 23:29 200 mls/hr .Q5H ANNETTE Administration Morphine Sulfate 2 mg 07/22/25 03:07 Morphine Sulf Inj 10 Mg/Ml Vial IVP 07/27/25 03:06 Q2H PRN PAIN SCALE 7-10 (Severe Ondansetron HCl 4 mg 07/22/25 03:07 Ondansetron Inj 2 Mg/Ml Inj 2 Ml IVP 08/21/25 03:06 Q6H PRN NAUSEA OR VOMITING Protocol Pantoprazole Sodium 40 mg 07/22/25 09:00 07/22/25 08:53 Pantoprazole Inj 40 Mg Vial IVP 08/21/25 08:59 40 mg QDAY ANNETTE Administration
--- NOTE | 2025-07-22 11:09 | PC.SS ---
Patient Nahid Bolaños is a 24 Year old male admitted for Acute Pancreatitis. SS met with patient at bedside to discuss discharge plan and verify demographic information. Patient reports he lives at home with his uncle, Nahid Miranda who he reports is his surrogate decision maker, [phone]. Patient reports he does not utilize any source of DME to assist with ambulation. Patient is able to complete ADL's independently. Choice of pharmacy is [email or web address]. PCP is in [facility]. At time of discharge the patient wishes to return back home. Uncle will provide transportation. Next of kin:Uncle, Nahid Miranda Discharge Plan: Home
--- NOTE | 2025-07-22 12:00 | PC.SS ---
SS follow up note; Monitoring heart rate, Advancing diet. Patient vasiliy discharge home when medically cleared.
--- NOTE | 2025-07-22 16:10 | PC.NURSE ---
BEFORE PATIENT DC APPOINTMENT WITH [facility] WAS SCHEDULED FOR 07/29/[address] OSMAN TO FOLLOW UP POST DISCHARGE HOSPITALIZATION PRIMARY FOCUS LOW HEART RATE. PATIENT AND FAMILY MEMBERS AT BEDSIDE VERBALIZE UNDERSTANDING.
--- NOTE | 2025-07-22 16:34 | ESDS_ITS ---
<Statement entered by Julia Gant MD - 07/25/25 15:14> I reviewed above note and agree with findings and plans. I have also personally examined the patient with medicine team and went over assessment and plan with medical team including physician internist and resident physician. <Statement entered by Sean Bashir MD - 07/22/25 16:56> Patient was examined and case was reviewed with team including attending physician. Note reviewed, I agree with most of its contents and agree with the patient's care as documented by Dr. Vinny Bashir MD PGY-2 Planned Discharge Date 07/22/25 DS: Providers Provider Date of admission: 07/22/25 03:31 Primary care physician: Physician No Primary/Family Admitting Provider: Mainor Back MD Attending Provider on Admission: Julia Gant MD Attending Provider on DC: Julia Gant MD Discharging Provider: Kathy Casillas DO Anticipated date of discharge: 07/22/25 DS: Diagnosis Problem List Completed Was Problem List Reviewed/Reconciled?: Yes Hospital Course Hospital Course Hospital course: 24-year-old male with a history of polysubstance abuse, alcohol use disorder, and recurrent pancreatitis who presented with one day of worsening abdominal pain, mild nausea, and one episode of non-bloody emesis. Labs were notable for elevated WBC and lipase. CT abdomen/pelvis confirmed acute pancreatitis without pseudocyst. He was managed supportively with IV fluids, bowel rest, analgesia, and antiemetics. Pain improved over the course of admission, and diet was slowly advanced as tolerated. No complications occurred. He was discharged in stable condition with outpatient follow-up and substance use counseling. Patient is medically and physically stable for discharge. Diagnosis #Acute pancreatitis #Leukocytosis #History of polysubstance abuse #History of alcohol abuse #Recurrent pancreatitis Discharge Plan: Increase fluid intake, follow low fat diet, abstain from alcohol and drugs. Follow up with PCP within 1 week. Should your symptoms recur or worsen patient is instructed to return to the ED. Case discussed with my senior resident Dr. Chava Bashir and my attending Dr. Gant. Kathy Casillas DO PGY 1 Status at Discharge Overall status at discharge: patient is progressing back to baseline Time Spent with Patient Time attestation: Total time spent providing and/or coordinating discharge services: Time spent: Greater than 30 minutes Exam Vital Signs Temp Pulse Resp BP Pulse Ox O2 Del Method 97.1 F 54 L 16 122/64 98 Room Air 07/22/25 16:00 07/22/25 16:00 07/22/25 16:00 07/22/25 16:00 07/22/25 16:00 07/22/25 16:00 Narrative Exam Physical Exam General: Awake and in no acute distress. Conversational and non-toxic appearing. HEENT: Normocephalic, atraumatic, mucous membranes moist. Heart: Regular rate and rhythm, no murmurs. Lungs: Clear to auscultation with no wheezing or crackles. Abdomen: Soft, nondistended. No guarding or rebound tenderness. Mild epigastric pain. Neurologic: Alert and oriented x3, no gross neurological deficit, and patient able to move all 4 extremities. Extremities: No edema. Skin: No rash or ecchymoses. Discharge Plan Plan Patient Disposition: HOME (Self Care) Patient condition on transfer: Stable Care Plan Goals: Increase fluid intake, follow low fat diet, abstain from alcohol and drugs. Follow up with PCP within 1 week. Should your symptoms recur or worsen patient is instructed to return to the ED. Prescriptions/Referrals Prescriptions/Med Rec: No Action No Known Home Medications Referrals: No Primary/Family,Physician [Primary Care Provider] - Patient/Caregiver Discharge Instructions Education Materials: Understanding Pancreatitis, Treating Drug Abuse and Addiction, Pancreatitis Acute Dc Print Language: Danish Stand Alone Forms: [facility]en Award Info., Patient Portal Info Letter Discharge Order Discharge Orders: Discharge (Routine); Ordered 07/22/25 Ordered By: Kenn Cuevas Quality Discharge Quality Measures none
== END 2025-07-22 16:15 | disposition home or self-care (01) | DRG 282 ==
LOC: SERX 07-22 01:36 → SERHOLD 07-22 04:31 → S3SX 07-22 06:27
PROVIDERS: Nurse Practitioner Family; Admitting Provider Internal Medicine; Emergency Provider Emergency Medicine; Visit Provider Internal Medicine
DX: K85.90 Acute pancreatitis without necrosis or infection, unspecified (principal); F14.10 Cocaine abuse, uncomplicated; K86.1 Other chronic pancreatitis; F17.200 Nicotine dependence, unspecified, uncomplicated; F10.10 Alcohol abuse, uncomplicated
CPT/HCPCS: 36415; 74176; 80053; 80061; 80307; 81001; 83605; 83690; 83735; 85025; 87040; 93005; 93225; 96361; 96374; 96375; 96376; 99284; J1650; J2270; J2405; J2470; J7030; A9270

== ENCOUNTER 2025-07-29 08:46 | Outpatient (AMB) | payer MEDICAID, SELFPAY ==
[2025-07-29 08:58] VITALS: BP 126/73; PULSE 53; RESP 18; TEMP 36.6; O2SAT 97; BMI 32.5
--- NOTE | 2025-07-29 08:58 | ACNOTE_ITS ---
Vital Signs 07/29/25 08:58 Height 1.8 m Height Method Stated Weight 105.914 kg Weight Measurement Method Standing Scale BMI 32.5 BP 126/73 Blood Pressure Source Automatic Cuff Blood Pressure Location Right Upper Arm Position Sitting Respiration 18 Pulse 53 L Pulse Source Monitor Temp 97.9 F Temp Source Oral Pulse Oximetry (%) 97 Oxygen Delivery Method Room Air Allergies/Meds Allergies & Medications Allergies No Known Allergies Allergy (Verified 07/29/25 08:59) Medication Reconciliation [id number] 3,000-9,500-15,000 unit capsule, delayed rel (Creon) 8.12526 cap PO BID Pancreatitis #60 caps 07/29/25 [Rx] nicotine (polacrilex) 4 mg gum 4 mg buccal Q2H #100 ea 07/29/25 [Rx] nicotine 21 mg/24 hr daily transdermal patch 1 patch transdermal Q24H #28 ea 07/29/25 [Rx] MA Intake Visit Data Collection New Patient or Established: Established Patient (seen at [facility] within 3 years) Seen by Clinical Staff ONLY (RN/MA): No Pain Present Currently: No Pain scale:: 0 PCP or OBGYN visit in last 3 months: No Do You Feel Safe at Home: Yes Authorities Contacted: N/A Smoking Status Smoking Status: Current every day smoker Cessation Counseling Provided: EMILY was advised that quitting smoking is the single most important factor to protect the health of themselves and their family. Discussed the benefits of quitting smoking with patient. Encouraged patient to quit smoking and provided Cessation assistance materials and resources. Tobacco Use: Cigarette Years smoked: 10 Are you interested in quitting?: Yes Would you like additional Smoking Cessation Counseling?: Yes Immunization / Flu Flu Vaccine in the Last 12 Months: No Flu Vaccine Exclusion Criteria: No Exclusion Criteria Past Medical History Past Medical History NEUROLOGIC: Negative Neurological Disorders CARDIAC: Negative Cardiac Disorders or Congestive Heart Failure RESPIRATORY: Negative Chronic Obstructive Pulmonary Disease (COPD) or Asthma GASTROINTESTINAL: Positive Gastrointestinal Disorders, Pancreatitis and Gall Bladder Disease; Negative Hepatitis GENITOURINARY: Negative Genitourinary Disorders or Renal Disease ENDOCRINE: Negative Endocrine Disorders, Diabetes Mellitus Type 1 or Diabetes Mellitus Type 2 HEMATOLOGIC: Negative Blood Disorders or Sickle Cell Disease OTHER HISTORY: Negative Autoimmune Disease, Anesthesia Reactions, MRSA, VRSA, Vancomycin-Resistant Enterococci, Human Immunodeficiency Virus (HIV), Chicken Pox, Measles, Mumps, Rubella ([place] Measles), Pertussis, Clostridium Difficile or Cancer Family History FAMILY HISTORY: Negative Family Cardiac Disorders, Family Cancer, Family Surgery or Family Anesthesia Reaction Surgical History SURGICAL: Positive Abdominal Surgery; Negative Cardiac Surgery Social History SMOKING STATUS: Smoking status: Current every day smoker PACK YEARS: Pack-Years: 8 SECOND HAND EXPOSURE: second hand exposure: No ALCOHOL: Alcohol Intake: Former ALCOHOL FREQUENCY: Alcohol Intake Frequency: 3 or More Drinks per Day HOUSING: Housing: House LIVES WITH: Lives With: Family Patient Marily Moore Social History Living Situation History Housing: House Housing Other:: Pt is independent and lives alone Tobacco History Smoking Status: Current every day smoker Packs per Day: 1 Pack-Years: 8 Number of Smoking Years (pipe): 2 Second Hand Smoke Exposure: No Alcohol History Alcohol Intake: Former Alcohol Intake Frequency: 3 or More Drinks per Day Alcohol Intake Frequency Other:: 12-pack a day Substance Use History Substance Use: pt denies substance use hx, but was positive on previous admissions Domestic Abuse History Do You Feel Safe at Home: Yes Review of Systems Report any current symptoms Only answer those that you have currently: Past Medical History Past Medical History Have you ever been diagnosed with any of the following: Cardiology Problems Congestive Heart Failure: No Respiratory Problems Chronic Obstructive Pulmonary Disease (COPD): No Asthma: No Stomache/Intestinal Problems Hepatitis: No Pancreatitis: Yes Gall Bladder Disease: Yes Genital/Urinary Problems Renal Disease: No Endocrine Problems Diabetes Mellitus Type 1: No Diabetes Mellitus Type 2: No Blood Problems Sickle Cell Disease: No Other Problems Autoimmune Disease: No Anesthesia Reactions: No MRSA: No VRSA: No Vancomycin-Resistant Enterococci: No Human Immunodeficiency Virus (HIV): No Chicken Pox: No Measles: No Mumps: No Rubella ([place] Measles): No Pertussis: No Clostridium Difficile: No Cancer: No History of Present Illness HPI Narrative Mr. Chandan Miranda is a 24-year-old male with past medical history of polysubstance use, methamphetamine use, alcohol use disorder and recurrent pancreatitis who was recently discharged from [facility] on July 22, 2025 after being treated for acute pancreatitis during the hospitalization. Patient seen in [facility] for follow-up today. 07/29/2025: Patient has no active complaints, seen for follow-up reported that he had multiple episodes of bradycardia during the hospitalization and was recommended to follow-up outpatient with a guest experience captain and is requesting a referral. Patient will be referred to Dr. Partida for bradycardia evaluation will likely need Holter monitoring. Patient reports alcohol abstinence and also abstinence from all substances for now. Patient reports episodes of diarrhea and mild symptoms of bloating, due to multiple episodes of pancreatitis and is requesting Creon, will be prescribed. Patient is interested in quitting smoking as well, will prescribe nicotine patches and nicotine gum. Review of Systems Review of Systems Systems Reviewed: All systems reviewed, normal except as documented Objective/Exam Narrative Physical exam: Physical Exam General: Awake and in no acute distress. Conversational and non-toxic appearing. HEENT: Normocephalic, atraumatic, mucous membranes moist. Heart: Slow rate, regular rhythm, no murmurs. Lungs: Clear to auscultation with no wheezing or crackles. Abdomen: Soft, nondistended, nontender, positive bowel sounds. ?No guarding or rebound tenderness. Neurologic: Alert and oriented x3, no gross neurological deficit, and patient able to move all 4 extremities. Extremities: No edema. Skin: No rash or ecchymoses. Assessment & Plan Diagnosis / Problem List (1) Bradycardia: Status: Acute Assessment & Plan: During telemetry monitoring in the hospital patient had stable asymptomatic bradycardia Patient denies any dizziness Patient does have history of alcohol use and polysubstance use Patient's bradycardia likely secondary to substance use As patient is asymptomatic no emergent indication for hospitalization Plan: - Referral to cardiology for Holter monitoring and echocardiogram - Advised to refrain from alcohol use and substance use - Informed patient if he becomes symptomatic return to the emergency department as soon as possible (2) Nicotine dependence: Status: Acute Qualifiers: Nicotine product type: cigarettes Substance use status: in withdrawal Qualified Code(s): F17.213 - Nicotine dependence, cigarettes, with withdrawal Assessment & Plan: Patient reports daily cigarette smoking Plan: - Smoking cessation education - Prescribe nicotine patches and nicotine gum (3) Pancreatitis, recurrent: Status: Acute Assessment & Plan: Was recently discharged for acute alcoholic pancreatitis Currently denies any abdominal pain tolerating diet well Complains of some diarrhea and bloating requesting Creon Plan: - Will prescribe Creon - Will consider repeat CT in 4 to 6 weeks if patient is symptomatic Plan Follow-up as needed Referral to cardiology Avoid smoking alcohol use and polysubstance use Case discussed with Attending Physician Dr. Almaz Cuellar MD Internal Medicine PGY-2 Disclaimer: This note was dictated by speech recognition. Minor errors in web design intern may be present due to voice recognition software. Orders: Referrals Cardiology R00.1 - Bradycardia, unspecified Additional Assessment Attending note: I, Blaine Muse MD, attest that I was physically present for the [place] portions of the service completed via telehealth, and I reviewed and discussed the case with the resident and agree with the resident's plans of care as documented above. Blaine Muse MD Physician Billing New Patient New Patient: E/M Level 3-CPT 66745 Office Procedures [facility] Level of Care Nursing/Assessment Patient Status: Established Patient Nursing Assessment/Reassessment: Medication Reconciliation, Update PMH in EMR and Vital Signs Coordination of Care: Complex Care and Chronic Disease 1-5, Education Complex Pt/Fam, Results/Orders obtained and Staff clarify orders Established Patient Charge Established Patient Point Assignment: 90 Established Patient Point Charge: EP Level 3 (80-115)
== END 2025-07-29 09:37 | disposition home or self-care (01) ==
LOC: HODAHC 08:46
PROVIDERS: Supervising Provider Internal Medicine
DX: R00.1 Bradycardia, unspecified (principal); F17.213 Nicotine dependence, cigarettes, with withdrawal; K85.20 Alcohol induced acute pancreatitis without necrosis or infection
CPT/HCPCS: 99213; G0463